=== PATIENT | female | born 1940 | race Caucasian/White ===

== ENCOUNTER 2018-05-29 21:20 | Inpatient (IN) | payer MEDICARE, OTHER ==
[2018-05-29] MEDS ORDERED: MORPHINE 10 MG/ML VIAL IVP STA ×2 (22:13→23:35)
[2018-05-29 22:34] LABS: BASOPHILS # (AUTO) 0.1 10^3/uL (0.0-0.1); BASOPHILS % (AUTO) 0.5 %; EOSINOPHILS # (AUTO) 0.1 10^3/uL (0.0-0.7); EOSINOPHILS % (AUTO) 0.5 %; HGB - HEMOGLOBIN 13.3 g/dL (12.0-16.0); LYMPHOCYTES % (AUTO) 7.4 %; MEAN CORPUSCULAR HEMOGLOBIN 35.8 pg (27.0-31.0); MEAN CORPUSCULAR HGB CONC 34.1 g/dL (32.0-36.0); MEAN CORPUSCULAR VOLUME 104.9 fL (81.0-99.0); MEAN PLATELET VOLUME 7.5 fL (7.9-10.8); MONOCYTES # (AUTO) 1.1 10^3/uL (0.0-1.0); MONOCYTES % (AUTO) 8.2 %; NEUTROPHILS % (AUTO) 83.4 %; PLT - PLATELET COUNT 255 10^3/uL (130-450); RED BLOOD COUNT 3.72 10^6/uL (4.20-5.40); RED CELL DISTRIBUTION WIDTH 14.1 % (12.0-15.0); WHITE BLOOD COUNT 13.2 x10^3/uL (4.8-10.8)
[2018-05-29 22:46] LABS: ALBUMIN 3.7 g/dL (3.2-5.5); ALBUMIN/GLOBULIN RATIO 1.1 (1.0-2.2); BILIRUBIN,TOTAL 0.9 mg/dL (0.2-1.0); CALCIUM 8.7 mg/dL (8.5-10.3); CREATININE 0.8 mg/dL (0.4-1.0)
[2018-05-29] MEDS: SODIUM CHLORIDE 0.9% 1,000 ML IV ONE (22:48)
[2018-05-29] MEDS ORDERED: IOPAMIDOL-300 100 ML VIAL ONE (23:15)
[2018-05-29] MEDS ORDERED: IOPAMIDOL-300 100 ML VIAL IVP ONE (23:34)
[2018-05-29] MEDS ORDERED: SODIUM CHLORIDE 0.9% 1,000 ML IV ONE (23:35)
[2018-05-29] MEDS ORDERED: MORPHINE 2 MG/ML SYRINGE IVP STA (23:40)
--- NOTE | 2018-05-30 00:16 | ED Physician Documentation ---
PD HPI ABD PAIN - Stated complaint Stated Complaint: ABD PX - Chief complaint Chief Complaint: General - History obtained from History obtained from: Patient, Family - History of Present Illness Timing - onset: Today Timing - details: Gradual onset, Still present Quality: Cramping, Aching Location: All over / everywhere Worsened by: Moving, Palpation Associated symptoms: No: Fever, Nausea, Vomiting, Constipation Similar symptoms before: Has not had sx before Recently seen: Not recently seen - Additional information Additional information: Patient is a 77 year old female who is presenting to the emergency department for abdominal pain. patient states that yesterday she was pulling a lot of weeds out yesterday and today she has diffuse abdominal pain. Patient states that she hasn't felt like eating much but denies nausea, vomiting or diarrhea. Review of Systems Constitutional: denies: Fever, Chills Eyes: reports: Reviewed and negative Ears: reports: Reviewed and negative Cardiac: denies: Chest pain / pressure Respiratory: denies: Dyspnea, Cough GI: reports: Abdominal Pain. denies: Abdominal Swelling, Nausea, Vomiting, Constipation, Diarrhea : denies: Dysuria, Frequency, Hesitancy, Unable to Void Skin: denies: Rash Neurologic: denies: Generalized weakness, Focal weakness PD PAST MEDICAL HISTORY - Past Medical History Past Medical History: No - Past Surgical History /UPPER CASER: section, Hysterectomy - Allergies Allergies/Adverse Reactions: Allergies Allergy/AdvReac Type Severity Reaction Status Date / Time No Known Drug Allergies Allergy Verified 05/29/18 21:27 - Social History Does the pt smoke?: No Smoking Status: Never smoker Does the pt drink ETOH?: No Does the pt have substance abuse?: No - Immunizations Immunizations are current?: Yes PD ED PE NORMAL - Vitals Vital signs reviewed: Yes - HEENT HEENT: Atraumatic - Cardiac Cardiac: RRR - Respiratory Respiratory: No respiratory distress - Derm Derm: Normal color, Warm and dry - Extremities Extremities: No deformity - Neuro Neuro: Alert and oriented X 3 - Psych Psych: Normal mood PD ED PE EXPANDED - General General: In Pain - HEENT HEENT: Dry mucous membranes - Abdomen Abdomen: Tender to palpation, RLQ, LLQ, Generalized/diffuse. No: Rebound, Guarding Results - Vitals Vitals: Vital Signs - 24 hr 05/29/18 21:26 Temperature 36.5 C Heart Rate 76 Respiratory 16 Rate Blood Pressure 112/64 O2 Saturation 95 Oxygen O2 Source Room air - Labs Labs: Laboratory Tests 05/29/18 05/29/18 05/30/18 22:27 22:27 00:10 WBC 13.2 H RBC 3.72 L Hgb 13.3 Hct 39.0 MCV 104.9 H MCH 35.8 H MCHC 34.1 RDW 14.1 Plt Count 255 MPV 7.5 L Neut # (Auto) 11.0 H Lymph # (Auto) 1.0 L [place] # (Auto) 1.1 H Eos # (Auto) 0.1 Baso # (Auto) 0.1 Absolute Nucleated RBC 0.01 Nucleated RBC % 0.0 Sodium 133 L Potassium 3.7 Chloride 101 Carbon Dioxide 25 Anion Gap 7.0 BUN 14 Creatinine 0.8 Estimated GFR (MDRD) 69 L Glucose 140 H Calcium 8.7 Total Bilirubin 0.9 AST 21 ALT 16 Alkaline Phosphatase 87 Total Protein 7.0 Albumin 3.7 Globulin 3.3 Albumin/Globulin Ratio 1.1 Lipase 25 Urine Color YELLOW Urine Clarity CLEAR Urine pH 5.5 Ur Specific [place] 1.010 Urine Protein NEGATIVE Urine Glucose (UA) NEGATIVE Urine Ketones 40 H Urine Occult Blood NEGATIVE Urine Nitrite NEGATIVE Urine Bilirubin NEGATIVE Urine Urobilinogen 0.2 (NORMAL) Ur Leukocyte Esterase NEGATIVE Ur Microscopic Review NOT INDICATED Urine Culture Comments NOT INDICATED - Rads (name of study) ct abd pelvis Radiology: Final report received, Discussed with rads, See rad report (enlarged gallbladder likely secondary to torsion, diverticultis) PD MEDICAL DECISION MAKING - ED course Complexity details: reviewed old records, reviewed results, re-evaluated patient , considered differential, d/w patient, d/w family ED course: Patient was seen and examined at bedside. IV access was gained and labs were drawn. patient was treated with fluid bolus and morphine for pain. Imaging was ordered. When patient returned from imaging the results were reviewed. Case was discussed with radiologist who stated that it was likely a torsion of the gallbladder. Case was discussed with the information services manager surgeon, Dr. Skinner who stated that he would see the patient in the morning and to admit to the hospitalist. Hospitalist was contacted and the case was discussed with him. Patient was admitted under his care. he was going to start antibiotics. - Sepsis Event Vital Signs: Vital Signs - 24 hr 06/28/18 21:26 Temperature 36.5 C Heart Rate 76 Respiratory 16 Rate Blood Pressure 112/64 O2 Saturation 95 Oxygen O2 Source Room air Departure - Departure Disposition: 66 [facility] DC/Xfer Clinical Impression: Enlarged gallbladder, Cholecystitis Condition: Stable
[2018-05-30 00:20] LABS: BILIRUBIN,URINE NEGATIVE (NEGATIVE); GLUCOSE, URINE (UA) NEGATIVE (NEGATIVE); KETONES,URINE (UA) 40 mg/dL (NEGATIVE); LEUKOCYTE ESTERASE, URINE NEGATIVE (NEGATIVE); NITRITE,URINE NEGATIVE (NEGATIVE); OCCULT BLOOD,URINE NEGATIVE (NEGATIVE); PH,URINE 5.5 PH (5.0-7.5); PROTEIN,URINE NEGATIVE (NEGATIVE); UROBILINOGEN,URINE 0.2 (NORMAL) E.U./dL (NORMAL)
--- NOTE | 2018-05-30 00:25 | CT Report ---
Procedure Date: 05/29/2018 Accession Number: [id number] / [id number] Procedure: CT - Abdomen/Pelvis W/ CPT Code: FULL RESULT: EXAM: CT ABDOMEN AND PELVIS EXAM DATE: 05/29/2018 11:35 PM. CLINICAL HISTORY: Lower abdominal pain. COMPARISONS: None. TECHNIQUE: Routine helical CT imaging was performed through the abdomen and pelvis. IV contrast: ISOVUE 300 100mL. Enteric contrast: No. Reconstructions: Coronal and sagittal. In accordance with CT protocol optimization, one or more of the following dose reduction techniques were utilized for this exam: automated exposure control, adjustment of mA and/or KV based on patient size, or use of iterative reconstructive technique. FINDINGS: Lung Bases: Bilateral lower lobe volume loss and bronchiectasis. Incidental coronary disease is present in the left anterior descending coronary artery. Small to moderate paraesophageal hernia. Small left pleural effusion. Liver: No mass. Mild intrahepatic bile duct dilation is noted. Portal vein is patent. Gallbladder/Bile Ducts: Marked distention of the gallbladder with associated wall thickening and mild adjacent stranding. The gallbladder wall enhances poorly. Common bile duct is prominent measuring 0.7 cm. No common bile duct stone or gallstone is noted. Spleen: Normal. Pancreas: Normal. Adrenal Glands: Normal. Kidneys: Normal. No masses or hydronephrosis. Peritoneal Cavity/Bowel: No pneumoperitoneum. Small amount of ascites is noted in the upper abdomen. Small to moderate amount of non-loculated fluid noted in the pelvis. Diffuse diverticulosis with mild to moderate distal left and proximal sigmoid wall thickening and mild adjacent stranding. No dilated bowel suggesting obstruction. Normal appendix. Small bowel and stomach are normal. No retroperitoneal, mesenteric or pelvic adenopathy. Pelvic Organs: Uterus is absent. Normal bladder. Pelvic ascites as described above. No collection, pelvic mass or adenopathy. Vasculature: Diffuse abdominal aortic atheromatous calcified plaques. No abdominal aortic aneurysm or dissection. Normal IVC. 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 Bones: No significant abnormality. Other: None. IMPRESSION: 1. Distended abnormal cystic structure in the right upper quadrant presumed to be the gallbladder. There is wall thickening and adjacent fluid. Reyes are poorly enhancing. Differential includes acute cholecystitis or gallbladder torsion. Favor gallbladder torsion given the appearance. Recommend surgical consultation. Ultrasound will NOT add useful information. 2. Long segment left colon and sigmoid colon wall thickening and mild adjacent stranding. Imaging findings may represent acute diverticulitis. No complication such as perforation or obstruction. Normal appendix. 3. Abdominal and pelvic ascites. No pneumoperitoneum or abscess. 4. 1.5 cm splenic artery calcification. 5. Moderate paraesophageal hernia. RADIA
[2018-05-30 00:27] LABS: CLARITY,URINE CLEAR (CLEAR)
[2018-05-30] MEDS ORDERED: ONDANSETRON 4 MG/2 ML VIAL IVP PRN (00:35)
[2018-05-30] MEDS ORDERED: ACETAMINOPHEN 325 MG TABLET PO PRN (00:35)
[2018-05-30] MEDS ORDERED: oxyCODONE 5 MG TABLET PO PRN ×3 (00:35→15:06)
[2018-05-30] MEDS ORDERED: MORPHINE 2 MG/ML SYRINGE IVP PRN (00:35)
[2018-05-30] MEDS ORDERED: PROMETHAZINE 25 MG/1 ML VIAL IM PRN (00:35)
[2018-05-30] MEDS ORDERED: SODIUM CHLORIDE FLUSH 0.9% 10 ML SYRINGE IVP PRN (00:35)
[2018-05-30] MEDS ORDERED: PROCHLORPERAZINE 10 MG/2 ML VIAL IVP PRN (00:35)
[2018-05-30] MEDS: SODIUM CHLORIDE 0.9% 1,000 ML IV ONE (00:51)
--- NOTE | 2018-05-30 00:59 | HISTORY & PHYSICAL EXAMINATION ---
Chief Complaint - Chief Complaint Chief Complaint: Abdominal Pain History of Present Illness - Admitted From Admitted From:: Emergency department - History Obtained From Records Reviewed: Yes History obtained from: Patient Exam Limitations: None - History of Present Illness HPI Comment/Other: Patient is a 77-year-old female with a past medical history significant for breast cancer status post lumpectomy and radiation, hyperlipidemia, essential tremor, cataracts and osteoarthritis status post bilateral knee replacements who presents to the emergency department with a chief complaint of abdominal pain. She states the abdominal pain first started yesterday evening at 8 PM. She states that throughout the day she was in the yard doing yard work. She states that when the pain started she thought that it was a muscle strain. She states that the pain became very severe and at its worse was a 10 out of 10. She states that the pain continued throughout the night and would come in waves. She states that times the pain was sharp and other times it was dull. She states the pain was initially located in the upper abdomen just under the rib cage but then became very diffuse. She denies any nausea and vomiting associated with the pain. She states that she woke up this morning and continues to have the pain. She took a Tylenol with some relief to the pain for about 4 hours but then the pain returned and was as severe as ever. She states that she tried to take another Tylenol but it gave her no relief. She states that she had decreased appetite throughout the day and could only bear to eat a little bit of yogurt and drink a little bit of water. She states that the pain continued and was very persistent and severe so she finally decided to come to the emergency department. The patient denies ever having any pain like this before. The patient denies any diarrhea or constipation. The patient denies any fevers or chills. The patient denies any chest pain, shortness of breath or palpitations. Patient denies any headaches, blurred vision, runny nose, sore throat, nasal congestion, difficulty swallowing, orthopnea, PND, increased lower extremity swelling, urinary urgency, urinary frequency, dysuria, joint pain, muscle aches , joint swelling, back pain, neck stiffness, skin changes, rash, hair loss, recent unintentional weight loss or any focal neurologic deficits. On presentation to the emergency department the patient was in a significant amount of pain. She however had stable vital signs she was afebrile and normotensive. The patient was given fluids and several doses of IV morphine with little relief of her abdominal pain. The patient's lab work revealed that she had a leukocytosis of 13.2 and was slightly hyponatremic. The patient also had some hyperglycemia with a glucose of 140 the remainder of her electrolytes were within normal limits. Patient's urine analysis was negative. The patient underwent a CT of her abdomen and pelvis which revealed a distended abnormal cystic structure in the right upper quadrant presumed to be her gallbladder. There was wall thickening and adjacent fluid. The francisco were poorly enhancing. The differential included acute cholecystitis or gallbladder torsion. The patient also had long segment left colon and sigmoid colon wall thickening and mild adjacent stranding which could represent acute diverticulitis. The patient was also found to have pelvic ascites. As well as a moderate paraesophageal hernia. Given the patient's possible cholecystitis and diverticulitis the patient was admitted to the [facility] by the hospitalist team and surgery will be consulted. 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 She is to a orthopedic surgeon. She has 4 children her youngest son is a pharmacist at [employer]. She lives with her in [place] near the [facility]. They are planning to move to [facility] and already have a [place] Her just recently retired and they would like to spend a halfway on [facility]. The patient has never been a smoker. She does drink a glass of wine on occasion. She denies any illicit drug use. - POLST Patient has POLST: Yes POLST Status: DNR Meds/Allgy - Home Medications Home Medications: Ambulatory Orders Medication Instructions Recorded Confirmed Atorvastatin [Lipitor] 20 mg 05/30/18 Cholecalciferol (Vitamin D3) 1,000 unit PO 05/30/18 [Vitamin D3] Lutein 6 mg PO 05/30/18 Multivitamin [Multiple Vitamins] 1 each PO 05/30/18 Primidone 250 mg PO 05/30/18 Propranolol [Inderal] 10 mg PO BID 05/30/18 05/30/18 Topiramate 50 mg PO 05/30/18 Valacyclovir HCl [Valtrex] 500 mg PO 05/30/18 - Allergies Allergies/Adverse Reactions: Allergies Allergy/AdvReac Type Severity Reaction Status Date / Time No Known Drug Allergies Allergy Verified 05/29/18 21:27 Review of Systems - Other Findings Other Findings: A comprehensive review of systems was performed the pertinent positives and negatives are stated above in the HPI and the remainder of the review of systems is negative. Exam - Vital Signs Reviewed Vital Signs: Yes - Physical Exam General Appearance: positive: Alert, Moderate distress (abdominal pain, patient unable to get comfortable) Eyes Bilateral: positive: Normal inspection, PERRL, EOMI, No lid inflammation, Conjunctivae nml, No scleral icterus ENT: positive: ENT inspection nml, Pharynx nml, Dry mucous membranes. negative : Purulent nasal drainage, Pharyngeal erythema, Oral lesions Neck: positive: Nml inspection, Thyroid nml, No JVD, Trachea midline. negative : Thyromegaly, Lymphadenopathy (R), Lymphadenopathy (L), Stiff neck, Carotid bruit, Swelling/bruising, Tracheal deviation Respiratory: positive: Chest non-tender, No respiratory distress, Breath sounds nml. negative: Wheezes, Rales, Rhonchi Cardiovascular: positive: Regular rate & rhythm, No murmur, No gallop Peripheral Pulses: positive: 2+ Abdomen: positive: Nml bowel sounds, Tenderness (Mostly on the right side of the abdomen and worst in the RUQ but patient is diffusely tender.), Guarding. negative: Rebound, Hepatomegaly, Splenomegaly Back: positive: Nml inspection. negative: CVA tenderness (R), CVA tenderness (L ) Skin: positive: Color nml, No rash, Warm. negative: Cyanosis, Diaphoresis, Pallor, Skin rash Extremities: positive: Non-tender, Full ROM, Nml appearance, Pedal edema (Mild bilateral) Neurologic/Psychiatric: positive: Oriented x3, CN's nml (2-12), Motor nml, Sensation nml, Mood/affect nml Conclusion/Plan - Problem List (1) Cholecystitis Conclusion/Plan: Patient presented with abdominal pain and had abdominal tenderness on examination. Pain was diffuse and started acutely yesterday. Patient's CT abdomen shows what appears to be an enlarged gallbladder concerning for cholecystitis versus gallbladder torsion. Given that the patient does have a leukocytosis and right upper quadrant tenderness we will treat the patient for cholecystitis with IV antibiotics. Plan: IV ciprofloxacin and Flagyl N.p.o. IV fluids Surgical consult for cholecystectomy Pain control with IV Dilaudid IV antiemetics (2) Diverticulitis Conclusion/Plan: Patient presents to the emergency department with diffuse abdominal pain and was tender diffusely on examination. The patient had a leukocytosis on presentation. The patient was found on CT of the abdomen and pelvis to have likely cholecystitis versus gallbladder torsion and in addition the patient had finding of left colon and sigmoid colon wall thickening and mild adjacent stranding concerning for acute diverticulitis. Plan: IV antibiotics with ciprofloxacin and Flagyl IV fluids N.p.o. IV antiemetics and IV pain medication Monitor closely (3) Abdominal pain Conclusion/Plan: Patient presented with abdominal pain which was diffuse and was tender on examination. Patient did have leukocytosis and appeared to be dry on examination. Patient had decreased appetite. Patient is found to have an enlarged gallbladder with possible cholecystitis versus gallbladder torsion. The patient also was found to have left colon and sigmoid colon wall thickening and adjacent stranding representing acute diverticulitis. Plan: IV antibiotics IV pain medication for control of abdominal pain IV antiemetics for control of nausea Surgical consult for likely cholecystectomy IV fluids Qualifiers: Abdominal location: generalized Qualified Code(s): R10.84 - Generalized abdominal pain (4) Hyponatremia Conclusion/Plan: Patient was hyponatremic on presentation with a sodium of 133. Patient appears to have hypovolemic hyponatremia likely secondary to ongoing infection and poor oral intake. Plan: IV fluids Monitor sodium (5) Hyperglycemia Conclusion/Plan: The patient does not have any history of diabetes but does have hyperglycemia on presentation with a glucose of 140. This could be a stress response secondary to her ongoing infection. However given her family history of diabetes we will get a hemoglobin A1c and continue to monitor her blood glucose. (6) Hyperlipidemia Conclusion/Plan: Patient has history of hyperlipidemia and is on Lipitor at home. Once we are able to confirm the patient's dose of Lipitor we will restarted while she is hospitalized Qualifiers: Hyperlipidemia type: unspecified Qualified Code(s): E78.5 - Hyperlipidemia , unspecified (7) Essential tremor Conclusion/Plan: Patient has a history of essential tremor and is on propranolol at home for treatment of her essential tremor. We will continue her on her home dose of propranolol once we confirm the dose. - Lab Results Lab results reviewed: Yes Fish Bones: 05/30/18 01:10 05/30/18 01:10 Other Lab Results: Laboratory Results WBC 15.7 x10^3/uL (4.8-10.8) H 05/30/18 01:10 RBC 3.58 10^6/uL (4.20-5.40) L 05/30/18 01:10 Hgb 12.7 g/dL (12.0-16.0) 05/30/18 01:10 Hct 38.7 % (37.0-47.0) 05/30/18 01:10 MCV 108.0 fL (81.0-99.0) H 05/30/18 01:10 MCH 35.5 pg (27.0-31.0) H 05/30/18 01:10 MCHC 32.9 g/dL (32.0-36.0) 05/30/18 01:10 RDW 14.5 % (12.0-15.0) 05/30/18 01:10 Plt Count 213 10^3/uL (130-450) 05/30/18 01:10 MPV 7.7 fL (7.9-10.8) L 05/30/18 01:10 Neut # (Auto) 13.7 10^3/uL (1.5-6.6) H 05/30/18 01:10 Lymph # (Auto) 0.7 10^3/uL (1.5-3.5) L 05/30/18 01:10 [place] # (Auto) 1.2 10^3/uL (0.0-1.0) H 05/30/18 01:10 Eos # (Auto) 0.0 10^3/uL (0.0-0.7) 05/30/18 01:10 Baso # (Auto) 0.0 10^3/uL (0.0-0.1) 05/30/18 01:10 Absolute Nucleated RBC 0.01 x10^3/uL 05/30/18 01:10 Nucleated RBC % 0.1 /100WBC 05/30/18 01:10 Sodium 134 mmol/L (135-145) L 05/30/18 01:10 Potassium 4.1 mmol/L (3.5-5.0) 05/30/18 01:10 Chloride 105 mmol/L (101-111) 05/30/18 01:10 Carbon Dioxide 22 mmol/L (21-32) 05/30/18 01:10 Anion Gap 7.0 (6-13) 05/30/18 01:10 BUN 12 mg/dL (6-20) 05/30/18 01:10 Creatinine 0.6 mg/dL (0.4-1.0) 05/30/18 01:10 Estimated GFR (MDRD) 97 (>89) 05/30/18 01:10 Glucose 143 mg/dL (70-100) H 05/30/18 01:10 Lactic Acid 0.9 mmol/L (0.5-2.2) 05/30/18 01:10 Calcium 8.1 mg/dL (8.5-10.3) L 05/30/18 01:10 Phosphorus 3.1 mg/dL (2.5-4.6) 05/30/18 01:10 Magnesium 1.9 mg/dL (1.7-2.8) 05/30/18 01:10 Total Bilirubin 0.8 mg/dL (0.2-1.0) 05/30/18 01:10 AST 22 IU/L (10-42) 05/30/18 01:10 ALT 15 IU/L (10-60) 05/30/18 01:10 Alkaline Phosphatase 78 IU/L (42-121) 05/30/18 01:10 Total Protein 6.5 g/dL (6.7-8.2) L 05/30/18 01:10 Albumin 3.4 g/dL (3.2-5.5) 05/30/18 01:10 Globulin 3.1 g/dL (2.1-4.2) 05/30/18 01:10 Albumin/Globulin Ratio 1.1 (1.0-2.2) 05/30/18 01:10 Lipase 25 U/L (22-51) 05/29/18 22:27 Urine Color YELLOW 05/30/18 00:10 Urine Clarity CLEAR (CLEAR) 05/30/18 00:10 Urine pH 5.5 PH (5.0-7.5) 05/30/18 00:10 Ur Specific [place] 1.010 (1.002-1.030) 05/30/18 00:10 Urine Protein NEGATIVE mg/dL (NEGATIVE) 05/30/18 00:10 Urine Glucose (UA) NEGATIVE mg/dL (NEGATIVE) 05/30/18 00:10 Urine Ketones 40 mg/dL (NEGATIVE) H 05/30/18 00:10 Urine Occult Blood NEGATIVE (NEGATIVE) 05/30/18 00:10 Urine Nitrite NEGATIVE (NEGATIVE) 05/30/18 00:10 Urine Bilirubin NEGATIVE (NEGATIVE) 05/30/18 00:10 Urine Urobilinogen 0.2 (NORMAL) E.U./dL (NORMAL) 05/30/18 00:10 Ur Leukocyte Esterase NEGATIVE (NEGATIVE) 05/30/18 00:10 Ur Microscopic Review NOT INDICATED 05/30/18 00:10 Urine Culture Comments NOT INDICATED 05/30/18 00:10 - Diagnostic Imaging Results Diagnostic Imaging Results: positive: Final report reviewed Diagnostic Imaging Results Comments: EXAM: [id number] CT/ABPEW ([id number]) Procedure Date: 05/29/2018 Accession Number: [id number] / [id number] Procedure: CT - Abdomen/Pelvis W/ CPT Code: FULL RESULT: EXAM: CT ABDOMEN AND PELVIS EXAM DATE: 05/29/2018 11:35 PM. CLINICAL HISTORY: Lower abdominal pain. COMPARISONS: None. TECHNIQUE: Routine helical CT imaging was performed through the abdomen and pelvis. IV contrast: ISOVUE 300 100mL. Enteric contrast: No. Reconstructions: Coronal and sagittal. In accordance with CT protocol optimization, one or more of the following dose reduction techniques were utilized for this exam: automated exposure control, adjustment of mA and/or KV based on patient size, or use of iterative reconstructive technique. FINDINGS: Lung Bases: Bilateral lower lobe volume loss and bronchiectasis. Incidental coronary disease is present in the left anterior descending coronary artery. Small to moderate paraesophageal hernia. Small left pleural effusion. Liver: No mass. Mild intrahepatic bile duct dilation is noted. Portal vein is patent. Gallbladder/Bile Ducts: Marked distention of the gallbladder with associated wall thickening and mild adjacent stranding. The gallbladder wall enhances poorly. Common bile duct is prominent measuring 0.7 cm. No common bile duct stone or gallstone is noted. Spleen: Normal. Pancreas: Normal. Adrenal Glands: Normal. Kidneys: Normal. No masses or hydronephrosis. Peritoneal Cavity/Bowel: No pneumoperitoneum. Small amount of ascites is noted in the upper abdomen. Small to moderate amount of non-loculated fluid noted in the pelvis. Diffuse diverticulosis with mild to moderate distal left and proximal sigmoid wall thickening and mild adjacent stranding. No dilated bowel suggesting obstruction. Normal appendix. Small bowel and stomach are normal. No retroperitoneal, mesenteric or pelvic adenopathy. Pelvic Organs: Uterus is absent. Normal bladder. Pelvic ascites as described above. No collection, pelvic mass or adenopathy. Vasculature: Diffuse abdominal aortic atheromatous calcified plaques. No abdominal aortic aneurysm or dissection. Normal IVC. 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 Bones: No significant abnormality. Other: None. IMPRESSION: 1. Distended abnormal cystic structure in the right upper quadrant presumed to be the gallbladder. There is wall thickening and adjacent fluid. [place] are poorly enhancing. Differential includes acute cholecystitis or gallbladder torsion. Favor gallbladder torsion given the appearance. Recommend surgical consultation. Ultrasound will NOT add useful information. 2. Long segment left colon and sigmoid colon wall thickening and mild adjacent stranding. Imaging findings may represent acute diverticulitis. No complication such as perforation or obstruction. Normal appendix. 3. Abdominal and pelvic ascites. No pneumoperitoneum or abscess. 4. 1.5 cm splenic artery calcification. 5. Moderate paraesophageal hernia. Core Measures - Anticipated LOS I expect patient to be DC'd or transferred within 96 hours.: Yes - DVT/VTE - Prophylaxis VTE/DVT Prophylaxis med ordered at admit?: Yes
[2018-05-30 01:17] LABS: BASOPHILS % (AUTO) 0.2 %; EOSINOPHILS % (AUTO) 0.1 %; HGB - HEMOGLOBIN 12.7 g/dL (12.0-16.0); LYMPHOCYTES # (AUTO) 0.7 10^3/uL (1.5-3.5); LYMPHOCYTES % (AUTO) 4.7 %; MEAN CORPUSCULAR HEMOGLOBIN 35.5 pg (27.0-31.0); MEAN CORPUSCULAR HGB CONC 32.9 g/dL (32.0-36.0); MEAN PLATELET VOLUME 7.7 fL (7.9-10.8); MONOCYTES # (AUTO) 1.2 10^3/uL (0.0-1.0); MONOCYTES % (AUTO) 7.4 %; NEUTROPHILS # (AUTO) 13.7 10^3/uL (1.5-6.6); NEUTROPHILS % (AUTO) 87.6 %; PLT - PLATELET COUNT 213 10^3/uL (130-450); RED BLOOD COUNT 3.58 10^6/uL (4.20-5.40); RED CELL DISTRIBUTION WIDTH 14.5 % (12.0-15.0); WHITE BLOOD COUNT 15.7 x10^3/uL (4.8-10.8)
[2018-05-30 01:35] LABS: ALBUMIN 3.4 g/dL (3.2-5.5); ALBUMIN/GLOBULIN RATIO 1.1 (1.0-2.2); BILIRUBIN,TOTAL 0.8 mg/dL (0.2-1.0); CALCIUM 8.1 mg/dL (8.5-10.3); CREATININE 0.6 mg/dL (0.4-1.0); MAGNESIUM 1.9 mg/dL (1.7-2.8); PHOSPHORUS 3.1 mg/dL (2.5-4.6); TOTAL PROTEIN 6.5 g/dL (6.7-8.2)
[2018-05-30] MEDS: CIPROFLOXACIN 400 MG/200 ML 200 ML IV SCH ×2 (02:04→12:15)
[2018-05-30] MEDS: HYDROmorphone 2 MG/ML VIAL IVP PRN ×3 (02:37→08:46)
[2018-05-30] MEDS: SODIUM CHLORIDE FLUSH 0.9% 10 ML SYRINGE IVP SCH ×3 (02:39→16:33)
[2018-05-30] MEDS: metroNIDAZOLE 500 MG/100 ML 500 MG/100 ML BAG IV SCH ×3 (03:28→17:00)
[2018-05-30 06:28] LABS: INR 1.1 (0.8-1.2); PT - PROTHROMBIN TIME 12.1 secs (9.9-12.6)
[2018-05-30 07:26] LABS: HB2 TOTAL 14.3 g/dL; HEMOGLOBIN A1C 0.49 g/dL; HEMOGLOBIN A1C % 5.3 % (4.6-6.2)
[2018-05-30] MEDS: FAMOTIDINE 20 MG TABLET PO SCH (08:27)
[2018-05-30] MEDS: POLYETHYLENE GLYCOL 3350 17 GM PACKET PO SCH (08:27)
--- NOTE | 2018-05-30 10:11 | CONSULTATION NOTE ---
Referring Provider Name of Referring Provider:: Dr. Lopez Consult Date: 05/30/18 Chief Complaint - Chief Complaint Chief Complaint: abdominal pain History of Present Illness - Admitted From Admitted From:: ER - History Obtained From Records Reviewed: yes History obtained from: pt Exam Limitations: none - History of Present Illness HPI Comment/Other: 77 yo female with sudden onset of severe constant steady right sided abdominal pain approximately 36 hours ago. This was not associated with fever,chills, N/V , change in bowel habits, melena, hematochezia. The pain waxed and waned in intensity but never completely resolved. She thought at first it was a muscle strain, but presented to the ER last night for evaluation when her daughter insisted upon it. No prior similar sx, no hx food intolerance, PUD, dysphagia, heartburn, indigestion, hepatitis/jaundice. Neg FH gallbladder disease or CRC, but + for duodenal carcinoma in her father and pancreatic ca in her mother. Her pain has persisted overnight but is well controlled with Dilaudid. No recent wt changes. A colonoscopy within the past 5 yrs was reportedly satisfactory. 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 She is to a orthopedic surgeon. She has 4 children her youngest son is a pharmacist at [employer]. She lives with her in [place] near the [facility]. They are planning to move to [facility] and already have a cabin on the [place]. Her just recently retired and they would like to spend a senior care on [facility]. The patient has never been a smoker. She does drink a glass of wine on occasion. She denies any illicit drug use. - Substance History Use: Uses substance without health or social issues: Alcohol Dependence: Experiences withdrawal or developed tolerances: NONE - POLST Patient has POLST: Yes POLST Status: DNR Meds/Allgy - Home Medications Home Medications: Ambulatory Orders Medication Instructions Recorded Confirmed Atorvastatin [Lipitor] 20 mg 05/30/18 Cholecalciferol (Vitamin D3) 1,000 unit PO 05/30/18 [Vitamin D3] Lutein 6 mg PO 05/30/18 Multivitamin [Multiple Vitamins] 1 each PO 05/30/18 Primidone 250 mg PO 05/30/18 Propranolol [Inderal] 10 mg PO BID 05/30/18 05/30/18 Topiramate 50 mg PO 05/30/18 Valacyclovir HCl [Valtrex] 500 mg PO 05/30/18 - Allergies Allergies/Adverse Reactions: Allergies Allergy/AdvReac Type Severity Reaction Status Date / Time No Known Drug Allergies Allergy Verified 05/29/18 21:27 Review of Systems - Constitutional Constitutional: reports: Poor appetite. denies: Fever, Chills, Weight gain, Weight loss - Cardiovascular Cariovascular: denies: Chest pain - Respiratory Respiratory: denies: Cough, Wheezing - Gastrointestinal Gastrointestinal: reports: Abdominal pain, Poor appetite. denies: Abdominal distention, Constipation, Diarrhea, Change in bowel habits, Rectal bleeding, Black stools, Bloody stools, Nausea, Vomiting, Coffee grounds emesis, Reflux/ heartburn, Bloating - Genitourinary Genitourinary: reports: Frequency. denies: Dysuria - Musculoskeletal Musculoskeletal: reports: Other (recent fall with contusion to right knee with effusion, and fx right ankle, treated without surgery) - Neurological Neurological: reports: Other (tremor, chronic) - Hematologic/Lymphatic Hematologic/Lymphatic: denies: Blood clots, Bleeding tendencies, Recurrent infections - All Other Systems All Other Systems: reports: Reviewed and negative Exam - Vital Signs Reviewed Vital Signs: Yes Vital Signs: Vital Signs x48h Temp Pulse Resp BP Pulse Ox 05/30/18 08:01 36.8 C 91 18 101/48 L 96 - Physical Exam General Appearance: positive: No acute distress, Alert Eyes Bilateral: positive: Normal inspection, Conjunctivae nml, No scleral icterus ENT: positive: ENT inspection nml, Dry mucous membranes Neck: positive: Nml inspection, No JVD. negative: Lymphadenopathy (R), Lymphadenopathy (L) Respiratory: positive: Chest non-tender, No respiratory distress, Breath sounds nml. negative: Wheezes, Rales, Rhonchi Cardiovascular: positive: Regular rate & rhythm, No murmur, No gallop Peripheral Pulses: positive: 2+ Abdomen: positive: Tenderness (diffuse right sided tenderness with guarding maximal in RUQ; no rebound tenderness or generalized peritoneal signs; neg Merlos's sign (pt recently received hydromorphone and currently reports no pain )), Guarding, Abnml bowel sounds (hypoactive). negative: Rebound, Hepatomegaly , Splenomegaly, Mass Back: positive: Nml inspection. negative: CVA tenderness (R), CVA tenderness (L ) Skin: positive: Color nml, No rash, Warm, Dry. negative: Cyanosis, Diaphoresis Extremities: positive: Non-tender, Nml appearance, No pedal edema. negative: Calf tenderness Neurologic/Psychiatric: positive: Oriented x3 Conclusion/Plan - Diagnosis Diagnosis: 1. Acute acalculous cholecystitis vs gallbladder torsion. 2. Abnormal CT of left colon, possibly due to coexisting diverticulitis; doubt neoplasm. 3. Mild volume depletion. 4. Paraesophageal hernia, asymptomatic at present. - Plan Plan: 1. To OR for lap vida, possible cholangiograms, possible open procedure; will inspect left colon at time of surgery. PAR conf with pt. 2. Further evaluation of colon and/or hiatal hernia at later date as needed. 3. Continue IVF and IV antibiotics as ordered. - Lab Results Lab results reviewed: Yes Fish Bones: 05/30/18 01:10 05/30/18 01:10 Other Lab Results: LFT's, lipase nl; UA neg; A1c nl - Diagnostic Imaging Results Diagnostic Imaging Results: positive: Final report reviewed, Read independently Diagnostic Imaging Results Comments: CT abd/pelvis: very large hydropic gallbladder with wall thickening and pericholecystic fluid, possible torsion, no stones, bile ducts at upper limits of nl (0.7 cm); abnormal thickening of descending and sigmoid colon c/w mild diverticulitis; small to moderate paraesophageal hiatal hernia; small amount of free fluid in pelvis. - EKG Results EKG Interpreted Independently: No EKG Findings: pending
[2018-05-30] MEDS: SODIUM CHLORIDE 0.9% 1,000 ML IV SCH ×3 (10:49→17:10)
[2018-05-30] MEDS ORDERED: BUPIVACAINE 0.5%-EPI 1:200000 PF 30 ML VIAL ONE (12:18)
[2018-05-30] MEDS ORDERED: BUPIVACAINE 0.5%-EPI 1:200000 PF 30 ML VIAL SUBQ ONE (13:04)
[2018-05-30] MEDS ORDERED: LACTATED RINGERS 1,000 ML IV ONE ×2 (13:05→14:00)
[2018-05-30] MEDS ORDERED: LIDOCAINE-MPF 2% 5 ML VIAL IM ONE (13:30)
[2018-05-30] MEDS ORDERED: NEOSTIGMINE 1 MG/1 ML 10 ML MDV IVP ONE (13:30)
[2018-05-30] MEDS ORDERED: fentaNYL 100 MCG/2 ML VIAL IVP ONE (13:30)
[2018-05-30] MEDS ORDERED: ROCURONIUM 50 MG/5 ML VIAL IVP ONE (13:30)
[2018-05-30] MEDS ORDERED: PROPOFOL 200 MG/20 ML VIAL IVP ONE (13:30)
[2018-05-30] MEDS ORDERED: ePHEDrine 50 MG/ML AMP IVP ONE (13:30)
[2018-05-30] MEDS ORDERED: ONDANSETRON 4 MG/2 ML VIAL IVP ONE (13:30)
[2018-05-30] MEDS ORDERED: GLYCOPYRROLATE 1 MG/5 ML VIAL IVP ONE (13:30)
[2018-05-30] MEDS ORDERED: ENOXAPARIN 40 MG/0.4 ML SYRINGE SUBQ SCH (14:00)
[2018-05-30] MEDS ORDERED: BUPIVACAINE 0.5%-EPI 1:200000 PF 10 ML VIAL ONE (14:27)
--- NOTE | 2018-05-30 14:58 | OPERATIVE REPORT ---
Operative Report - General Admit Date: 05/30/18 Procedure Date: 05/30/18 Planned Procedure: Lap vida Pre-Op Diagnosis: acute acalculous cholecystitis vs torsion of gallbladder Procedure Performed: Laparoscopic cholecystectomy Post Op Diagnosis: Torsion of gallbladder with infarction/gangrenous cholecystitis - Procedure Note Primary Surgeon: Bharath Skinner MD Anesthesia Provider: Que Elder CRNA Anesthesia Technique: General ET tube (gallbladder and contents) IV Fluids (mL): 1,300 Estimated Blood Loss (mL): 15 Urine Output (mL): 0 (no hernandes) Complications: none
[2018-05-30] MEDS ORDERED: HYDROmorphone 2 MG/ML VIAL IVP PRN (15:06)
[2018-05-30] MEDS ORDERED: CARBOXYMETHYLCELLULOSE OPHTH DROPS EACHEYE PRN (16:29)
[2018-05-30] MEDS: ACETAMINOPHEN 1,000 MG/100 ML 100 ML IV SCH ×2 (16:32→21:34)
[2018-05-30] MEDS: LACTATED RINGERS 1,000 ML IV SCH (16:32)
[2018-05-30] MEDS ORDERED: CHONDRO SU A PO SCH (21:00)
[2018-05-30] MEDS ORDERED: PRIMIDONE PO SCH (21:00)
[2018-05-30] MEDS ORDERED: GLUCOSAMINE PO SCH (21:00)
[2018-05-30] MEDS: valACYclovir 500 MG TABLET PO SCH (21:06)
[2018-05-30] MEDS: PRIMIDONE 250 MG PO SCH (21:06)
[2018-05-30] MEDS: PROPRANOLOL ER 80 MG CAPSULE PO SCH (21:06)
[2018-05-30] MEDS: ATORVASTATIN 10 MG TABLET PO SCH (21:06)
[2018-05-30] MEDS: TOPIRAMATE 100 MG TABLET PO SCH (21:06)
[2018-05-30] MEDS: NON FORMULARY MED (Cyclosporine [Restasis] 1 DROPS) EACHEYE SCH (21:07)
[2018-05-31] MEDS: CIPROFLOXACIN 400 MG/200 ML 200 ML IV SCH ×2 (00:38→12:17)
[2018-05-31] MEDS: metroNIDAZOLE 500 MG/100 ML 500 MG/100 ML BAG IV SCH ×3 (01:43→16:39)
[2018-05-31] MEDS: SODIUM CHLORIDE FLUSH 0.9% 10 ML SYRINGE IVP SCH ×3 (03:06→16:39)
[2018-05-31] MEDS: ACETAMINOPHEN 1,000 MG/100 ML 100 ML IV SCH ×4 (04:07→23:35)
[2018-05-31 05:44] LABS: BASOPHILS % (AUTO) 0.2 %; EOSINOPHILS # (AUTO) 0.1 10^3/uL (0.0-0.7); EOSINOPHILS % (AUTO) 0.4 %; HGB - HEMOGLOBIN 10.4 g/dL (12.0-16.0); LYMPHOCYTES # (AUTO) 0.7 10^3/uL (1.5-3.5); LYMPHOCYTES % (AUTO) 4.7 %; MEAN CORPUSCULAR HEMOGLOBIN 35.5 pg (27.0-31.0); MEAN CORPUSCULAR HGB CONC 33.4 g/dL (32.0-36.0); MEAN CORPUSCULAR VOLUME 106.4 fL (81.0-99.0); MONOCYTES % (AUTO) 6.9 %; NEUTROPHILS # (AUTO) 12.5 10^3/uL (1.5-6.6); NEUTROPHILS % (AUTO) 87.8 %; PLT - PLATELET COUNT 174 10^3/uL (130-450); RED BLOOD COUNT 2.93 10^6/uL (4.20-5.40); WHITE BLOOD COUNT 14.3 x10^3/uL (4.8-10.8)
[2018-05-31 05:59] LABS: ALBUMIN 2.4 g/dL (3.2-5.5); ALBUMIN/GLOBULIN RATIO 0.8 (1.0-2.2); BILIRUBIN,TOTAL 0.8 mg/dL (0.2-1.0); CALCIUM 7.8 mg/dL (8.5-10.3); CREATININE 0.8 mg/dL (0.4-1.0); MAGNESIUM 1.7 mg/dL (1.7-2.8); PHOSPHORUS 2.4 mg/dL (2.5-4.6); TOTAL PROTEIN 5.3 g/dL (6.7-8.2)
[2018-05-31] MEDS: POLYETHYLENE GLYCOL 3350 17 GM PACKET PO SCH (08:16)
[2018-05-31] MEDS: LACTATED RINGERS 1,000 ML IV SCH (08:18)
[2018-05-31] MEDS: KETOROLAC 15 MG/ML VIAL IVP PRN ×2 (08:22→16:38)
[2018-05-31] MEDS: valACYclovir 500 MG TABLET PO SCH ×2 (08:25→21:38)
[2018-05-31] MEDS: FAMOTIDINE 20 MG TABLET PO SCH (08:25)
[2018-05-31] MEDS: NON FORMULARY MED (Cyclosporine [Restasis] 1 DROPS) EACHEYE SCH ×2 (08:27→21:37)
[2018-05-31] MEDS: ENOXAPARIN 40 MG/0.4 ML SYRINGE SUBQ SCH (08:29)
[2018-05-31] MEDS ORDERED: LUTEIN 20 MG PO SCH (09:00)
[2018-05-31] MEDS ORDERED: CHOLECALCIFEROL 1,000 UNIT TABLET PO SCH (09:00)
[2018-05-31] MEDS ORDERED: FEXOFENADINE 60 MG TABLET PO SCH (09:00)
[2018-05-31] MEDS ORDERED: MULTIVITAMIN PO SCH (09:00)
--- NOTE | 2018-05-31 11:22 | PROVIDER PROGRESS NOTE ---
Subjective - General Admit Date: 05/30/18 Procedure Date: 05/30/18 Post Op Days: 1 Procedure Performed: lap vida - Review of Systems Wound/Incisions: positive: Healing well, No drainage General: positive: No symptoms Pulmonary: positive: No symptoms Cardiovascular: positive: No symptoms Gastrointestinal: positive: Abdominal pain (markedly improved compared to preop) . negative: Nausea, Vomiting, Difficulty swallowing, Flatus Genitourinary: positive: No symptoms Musculoskeletal: positive: No symptoms Skin: positive: No symptoms Psychiatric: positive: No symptoms - Other Other Information/Narrative: Feels much better, good pain control, no N/V, tolerating clear liquid diet well , voiding well. Objective - Patient Data Reviewed Vital Signs: Yes Vital Signs: Vital Signs x48h Temp Pulse Resp BP Pulse Ox 05/31/18 08:54 36.5 C 75 24 103/63 96 05/31/18 04:15 36.8 C 75 16 102/58 L 95 Weight: Weight 05/29/18 05/30/18 05/31/18 23:59 23:59 23:59 Weight (kg) 56.5 kg Intake & Output: Intake and Output Totals x24h 05/29/18 05/30/18 05/31/18 23:59 23:59 23:59 Intake Total 2437.5 2189.719 Output Total 500 450 Balance 1937.5 1739.719 - Lab Results Lab Results: 05/31/18 05:15 05/31/18 05:15 Other Lab Results: Lab Results x24hrs 05/31/18 05/31/18 Range/Units 05:15 05:15 WBC 14.3 H (4.8-10.8) x10^3/uL RBC 2.93 L (4.20-5.40) 10^6/uL Hgb 10.4 L (12.0-16.0) g/dL Hct 31.2 L (37.0-47.0) % MCV 106.4 H (81.0-99.0) fL MCH 35.5 H (27.0-31.0) pg MCHC 33.4 (32.0-36.0) g/dL RDW 14.0 (12.0-15.0) % Plt Count 174 (130-450) 10^3/uL MPV 8.0 (7.9-10.8) fL Neut # (Auto) 12.5 H (1.5-6.6) 10^3/uL Lymph # (Auto) 0.7 L (1.5-3.5) 10^3/uL [place] # (Auto) 1.0 (0.0-1.0) 10^3/uL Eos # (Auto) 0.1 (0.0-0.7) 10^3/uL Baso # (Auto) 0.0 (0.0-0.1) 10^3/uL Absolute Nucleated RBC 0.00 x10^3/uL Nucleated RBC % 0.0 /100WBC Sodium 132 L (135-145) mmol/L Potassium 3.5 (3.5-5.0) mmol/L Chloride 104 (101-111) mmol/L Carbon Dioxide 23 (21-32) mmol/L Anion Gap 5.0 L (6-13) BUN 11 (6-20) mg/dL Creatinine 0.8 (0.4-1.0) mg/dL Estimated GFR (MDRD) 69 L (>89) Glucose 113 H (70-100) mg/dL Calcium 7.8 L (8.5-10.3) mg/dL Phosphorus 2.4 L (2.5-4.6) mg/dL Magnesium 1.7 (1.7-2.8) mg/dL Total Bilirubin 0.8 (0.2-1.0) mg/dL AST 34 (10-42) IU/L ALT 30 (10-60) IU/L Alkaline Phosphatase 62 (42-121) IU/L Total Protein 5.3 L (6.7-8.2) g/dL Albumin 2.4 L (3.2-5.5) g/dL Globulin 2.9 (2.1-4.2) g/dL Albumin/Globulin Ratio 0.8 L (1.0-2.2) peritoneal fluid gm stain: no bacteria gallbladder contents gm stain: many GPC and GPR - Current Medications Current Medications: Current Medications Generic Name Dose Route Start Last Admin Trade Name Freq PRN Reason Stop Dose Admin Atorvastatin Calcium 20 mg 05/30/18 21:00 05/30/18 21:06 Lipitor PO 20 mg QPM DONNIE Administration Enoxaparin Sodium 40 mg 05/31/18 09:00 05/31/18 08:29 Lovenox SUBQ 40 mg DAILY DONNIE Administration Famotidine 20 mg 05/30/18 09:00 05/31/18 08:25 Pepcid PO 20 mg DAILY DONNIE Administration Ciprofloxacin 200 mls @ 200 mls/hr 05/30/18 01:00 05/31/18 01:43 Cipro 400 Mg/200 Ml IV Infused Q12H DONNIE Infusion Metronidazole 500 mg in 100 mls @ 100 mls/hr 05/30/18 01:00 05/31/18 09:38 Flagyl 500 Mg/100 Ml IV Infused Q8H DONNIE Infusion Acetaminophen 100 mls @ 400 mls/hr 05/30/18 16:00 05/31/18 11:16 Ofirmev IV Infused Q6H DONNIE Infusion Ketorolac Tromethamine 15 mg 05/30/18 15:05 05/31/18 08:22 Toradol Inj (15mg) IVP 06/04/18 15:04 15 mg Q6HR PRN Administration PAIN Non-Formulary Medication 1 drops 05/30/18 21:00 05/31/18 08:27 Cyclosporine [Restasis] EACHEYE 1 drops BID DONNIE Administration Oxycodone HCl 2.5 mg 05/30/18 15:06 05/31/18 03:59 Roxicodone PO 2.5 mg Q6H PRN Administration Pain 5 to 7 Primidone [Primidone 2 each 05/30/18 21:00 05/30/18 21:06 ] 250 Mg Tab PO 2 each QPM DONNIE Administration Polyethylene Glycol 17 gm 05/30/18 09:00 05/31/18 08:16 Miralax PO 17 gm DAILY DONNIE Administration Propranolol HCl 80 mg 05/30/18 21:00 05/30/18 21:06 Inderal La PO 80 mg QPM DONNIE Administration Sodium Chloride 10 ml 05/30/18 01:00 05/31/18 08:25 Normal Saline Flush 0.9% IVP 10 ml 0100,0900,1700 DONNIE Administration Topiramate 200 mg 05/30/18 21:00 05/30/18 21:06 Topamax PO 200 mg QPM DONNIE Administration Valacyclovir HCl 500 mg 05/30/18 21:00 05/31/18 08:25 Valtrex PO 500 mg BID DONNIE Administration - Physical Exam Wound/Incisions: positive: Healing well, No drainage General Appearance: positive: No acute distress, Alert Eyes Bilateral: positive: Conjunctivae nml, No scleral icterus ENT: positive: Pharynx nml, No signs of dehydration Neck: positive: Nml inspection. negative: No JVD (neck veins full) Respiratory: positive: Chest non-tender, Rales (faint bibasilar, which don't clear with cough) Cardiovascular: positive: Regular rate & rhythm, No murmur, No gallop Abdomen: positive: Nml bowel sounds, No distention, Tenderness (minimal, expected postop; incisions healing welll). negative: Guarding, Rebound Skin: positive: Color nml, Warm, Dry Extremities: positive: No pedal edema. negative: Calf tenderness Neurologic/Psychiatric: positive: Oriented x3 ABX Reporting Has patient been on IV antibiotics over the past 48 hours?: No Impression/Plan - Problem List Problem List: POD #1 s/p lap vida for torsion of gallbladder with infarction/gangrene. Doing well overall. Some evidence of mild fluid overload; GI tract function returning. Plan: d/c IVF, advance diet, continue IV antibiotics until peritoneal fluid cultures are back, OOB, pulmonary toilet.
--- NOTE | 2018-05-31 15:22 | PROVIDER PROGRESS NOTE ---
Subjective - Prog Note Date Prog Note Date: 05/31/18 Prog Note Time: 15:00 - Subjective Pt reports feeling: Improved Subjective: Today is postop day 1; the patient underwent successful laparoscopic cholecystectomy yesterday for a torsioned gangrenous gallbladder. She says she was a little more sore yesterday evening than she is today and she says her pain has been well managed thus far. She denies any fever or chills. Dr. Skinenr has started the patient on a clear liquid diet which she has tolerated fairly well. She denies any nausea or vomiting. Current Medications - Current Medications Current Medications: Active Medications Generic Name Dose Route Start Last Admin Trade Name Freq PRN Reason Stop Dose Admin Atorvastatin Calcium 20 mg 05/30/18 21:00 05/30/18 21:06 Lipitor PO 20 mg QPM DONNIE Administration Carboxymethylcellulose 1 drops 05/30/18 16:29 Refresh 1% Ophth Drops EACHEYE Q2H PRN Dry Eye Enoxaparin Sodium 40 mg 05/31/18 09:00 05/31/18 08:29 Lovenox SUBQ 40 mg DAILY DONNIE Administration Famotidine 20 mg 05/30/18 09:00 05/31/18 08:25 Pepcid PO 20 mg DAILY DONNIE Administration Ciprofloxacin 200 mls @ 200 mls/hr 05/30/18 01:00 05/31/18 13:37 Cipro 400 Mg/200 Ml IV Infused Q12H DONNIE Infusion Metronidazole 500 mg in 100 mls @ 100 mls/hr 05/30/18 01:00 05/31/18 09:38 Flagyl 500 Mg/100 Ml IV Infused Q8H DONNIE Infusion Acetaminophen 100 mls @ 400 mls/hr 05/30/18 16:00 05/31/18 11:16 Ofirmev IV Infused Q6H DONNIE Infusion Ketorolac Tromethamine 15 mg 05/30/18 15:05 05/31/18 08:22 Toradol Inj (15mg) IVP 06/04/18 15:04 15 mg Q6HR PRN Administration PAIN Non-Formulary Medication 1 drops 05/30/18 21:00 05/31/18 08:27 Cyclosporine [Restasis] EACHEYE 1 drops BID DONNIE Administration Ondansetron HCl 4 mg 05/30/18 00:35 Zofran Inj IVP Q6HR PRN Nausea / Vomiting Oxycodone HCl 2.5 mg 05/30/18 15:06 05/31/18 03:59 Roxicodone PO 2.5 mg Q6H PRN Administration Pain 5 to 7 Primidone [Primidone 2 each 05/30/18 21:00 05/30/18 21:06 ] 250 Mg Tab PO 2 each QPM DONNIE Administration Polyethylene Glycol 17 gm 05/30/18 09:00 05/31/18 08:16 Miralax PO 17 gm DAILY DONNIE Administration Prochlorperazine Edisylate 10 mg 05/30/18 00:35 Compazine Inj IVP Q6HR PRN Nausea / Vomiting Promethazine HCl 25 mg 05/30/18 00:35 Phenergan Inj IM Q6HR PRN Nausea / Vomiting Propranolol HCl 80 mg 05/30/18 21:00 05/30/18 21:06 Inderal La PO 80 mg QPM DONNIE Administration Sodium Chloride 10 ml 05/30/18 00:35 Normal Saline Flush 0.9% IVP PRN PRN NEEDED PER PROVIDER ORDERS Sodium Chloride 10 ml 05/30/18 01:00 05/31/18 08:25 Normal Saline Flush 0.9% IVP 10 ml 0100,0900,1700 DONNIE Administration Topiramate 200 mg 05/30/18 21:00 05/30/18 21:06 Topamax PO 200 mg QPM DONNIE Administration Valacyclovir HCl 500 mg 05/30/18 21:00 05/31/18 08:25 Valtrex PO 500 mg BID DONNIE Administration Aspirin [Hima] 325 mg PO DAILY 05/30/18 Atorvastatin [Lipitor] 20 mg PO QPM 05/30/18 Carboxymethylcellulose Sodium [Refresh Tears] 1 drops EACHEYE Q2H PRN 05/30/18 Cholecalciferol (Vitamin D3) [Vitamin D3] 2,000 unit PO DAILY 05/30/18 Cyclosporine [Restasis] 1 drops EACHEYE BID 05/30/18 Fexofenadine HCl [Shari Allergy] 180 mg PO DAILY 05/30/18 Glucosamine/Chondro Black A [Glucosamine-Chondroitin Tab] 1 each PO BID 05/30/18 Lutein 20 mg PO DAILY 05/30/18 Multivitamin [Multiple Vitamins] 1 each PO DAILY 05/30/18 Primidone 500 mg PO QPM 05/30/18 Propranolol ER [Inderal LA] 80 mg PO QPM 05/30/18 Topiramate 200 mg PO QPM 05/30/18 Valacyclovir HCl [Valtrex] 500 mg PO BID 05/30/18 Objective - Vital Signs/Intake & Output Reviewed Vital Signs: Yes Vital Signs: Vital Signs x48h Temp Pulse Resp BP Pulse Ox 05/31/18 12:57 36.5 C 71 22 104/57 L 96 05/31/18 12:23 95 05/31/18 08:54 36.5 C 75 24 103/63 96 Intake & Output: Intake & Output 05/28/18 05/29/18 05/30/18 05/31/18 23:59 23:59 23:59 23:59 Intake Total 2437.5 3359.719 Output Total 500 750 Balance 1937.5 2609.719 - Objective General Appearance: positive: No acute distress, Alert Eyes Bilateral: positive: Normal inspection, PERRL, EOMI, No lid inflammation, Conjunctivae nml, No scleral icterus ENT: positive: ENT inspection nml, Pharynx nml, No signs of dehydration Neck: positive: Nml inspection, Thyroid nml, No JVD, Trachea midline. negative : Thyromegaly Respiratory: positive: Chest non-tender, No respiratory distress, Breath sounds nml. negative: Wheezes, Rales, Rhonchi Cardiovascular: positive: Regular rate & rhythm, No murmur, No gallop Abdomen: positive: No organomegaly, No distention, Tenderness. negative: Hepatomegaly, Splenomegaly, Mass Back: positive: Nml inspection. negative: CVA tenderness (R), CVA tenderness (L ) Skin: positive: Color nml, No rash, Warm, Dry. negative: Cyanosis Extremities: positive: Non-tender, Full ROM, Nml appearance, No pedal edema Neurologic/Psychiatric: positive: Oriented x3, CN's nml (2-12), Motor nml, Sensation nml, Mood/affect nml - Lab Results Fish Bones: 05/31/18 05:15 05/31/18 05:15 Other Labs: Lab Results x24hrs 05/31/18 05/31/18 Range/Units 05:15 05:15 WBC 14.3 H (4.8-10.8) x10^3/uL RBC 2.93 L (4.20-5.40) 10^6/uL Hgb 10.4 L (12.0-16.0) g/dL Hct 31.2 L (37.0-47.0) % MCV 106.4 H (81.0-99.0) fL MCH 35.5 H (27.0-31.0) pg MCHC 33.4 (32.0-36.0) g/dL RDW 14.0 (12.0-15.0) % Plt Count 174 (130-450) 10^3/uL MPV 8.0 (7.9-10.8) fL Neut # (Auto) 12.5 H (1.5-6.6) 10^3/uL Lymph # (Auto) 0.7 L (1.5-3.5) 10^3/uL [place] # (Auto) 1.0 (0.0-1.0) 10^3/uL Eos # (Auto) 0.1 (0.0-0.7) 10^3/uL Baso # (Auto) 0.0 (0.0-0.1) 10^3/uL Absolute Nucleated RBC 0.00 x10^3/uL Nucleated RBC % 0.0 /100WBC Sodium 132 L (135-145) mmol/L Potassium 3.5 (3.5-5.0) mmol/L Chloride 104 (101-111) mmol/L Carbon Dioxide 23 (21-32) mmol/L Anion Gap 5.0 L (6-13) BUN 11 (6-20) mg/dL Creatinine 0.8 (0.4-1.0) mg/dL Estimated GFR (MDRD) 69 L (>89) Glucose 113 H (70-100) mg/dL Calcium 7.8 L (8.5-10.3) mg/dL Phosphorus 2.4 L (2.5-4.6) mg/dL Magnesium 1.7 (1.7-2.8) mg/dL Total Bilirubin 0.8 (0.2-1.0) mg/dL AST 34 (10-42) IU/L ALT 30 (10-60) IU/L Alkaline Phosphatase 62 (42-121) IU/L Total Protein 5.3 L (6.7-8.2) g/dL Albumin 2.4 L (3.2-5.5) g/dL Globulin 2.9 (2.1-4.2) g/dL Albumin/Globulin Ratio 0.8 L (1.0-2.2) - Diagnostic Imaging Diagnostic Imaging Results: positive: Final report reviewed Diagnostic Imaging Comments: EXAM: CT ABDOMEN AND PELVIS EXAM DATE: 05/29/2018 11:35 PM. CLINICAL HISTORY: Lower abdominal pain. COMPARISONS: None. TECHNIQUE: Routine helical CT imaging was performed through the abdomen and pelvis. IV contrast: ISOVUE 300 100mL. Enteric contrast: No. Reconstructions: Coronal and sagittal. In accordance with CT protocol optimization, one or more of the following dose reduction techniques were utilized for this exam: automated exposure control, adjustment of mA and/or KV based on patient size, or use of iterative reconstructive technique. FINDINGS: Lung Bases: Bilateral lower lobe volume loss and bronchiectasis. Incidental coronary disease is present in the left anterior descending coronary artery. Small to moderate paraesophageal hernia. Small left pleural effusion. Liver: No mass. Mild intrahepatic bile duct dilation is noted. Portal vein is patent. Gallbladder/Bile Ducts: Marked distention of the gallbladder with associated wall thickening and mild adjacent stranding. The gallbladder wall enhances poorly. Common bile duct is prominent measuring 0.7 cm. No common bile duct stone or gallstone is noted. Spleen: Normal. Pancreas: Normal. Adrenal Glands: Normal. Kidneys: Normal. No masses or hydronephrosis. Peritoneal Cavity/Bowel: No pneumoperitoneum. Small amount of ascites is noted in the upper abdomen. Small to moderate amount of non-loculated fluid noted in the pelvis. Diffuse diverticulosis with mild to moderate distal left and proximal sigmoid wall thickening and mild adjacent stranding. No dilated bowel suggesting obstruction. Normal appendix. Small bowel and stomach are normal. No retroperitoneal, mesenteric or pelvic adenopathy. Pelvic Organs: Uterus is absent. Normal bladder. Pelvic ascites as described above. No collection, pelvic mass or adenopathy. Vasculature: Diffuse abdominal aortic atheromatous calcified plaques. No abdominal aortic aneurysm or dissection. Normal IVC. 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 Bones: No significant abnormality. Other: None. IMPRESSION: 1. Distended abnormal cystic structure in the right upper quadrant presumed to be the gallbladder. There is wall thickening and adjacent fluid. Reyes are poorly enhancing. Differential includes acute cholecystitis or gallbladder torsion. Favor gallbladder torsion given the appearance. Recommend surgical consultation. Ultrasound will NOT add useful information. 2. Long segment left colon and sigmoid colon wall thickening and mild adjacent stranding. Imaging findings may represent acute diverticulitis. No complication such as perforation or obstruction. Normal appendix. 3. Abdominal and pelvic ascites. No pneumoperitoneum or abscess. 4. 1.5 cm splenic artery calcification. 5. Moderate paraesophageal hernia. ABX Reporting Has patient been on IV antibiotics over the past 48 hours?: Yes Assessment/Plan - Problem List (1) Hyperlipidemia Impression: Presumably well-managed, we will continue the patient on her Lipitor which she takes at home, 20 mg q PM. Qualifiers: Hyperlipidemia type: unspecified Qualified Code(s): E78.5 - Hyperlipidemia , unspecified (2) Hypertension Impression: The patient has been bordering on hypotension this hospitalization. We will continue the propanolol. (3) Allergic rhinitis Impression: Patient has a history of allergic rhinitis and takes Shari at home. We will continue this while she is in the hospital. (4) Cholecystitis Impression: The patient underwent surgical excision of her gallbladder which was gangrenous and torsioned. She is showing signs of clinical improvement. Continue present care. (5) Dry eye syndrome Impression: The patient takes Restasis at home for dry eye syndrome. We will continue this while she is inpatient.
[2018-05-31] MEDS: PRIMIDONE 250 MG PO SCH (21:37)
[2018-05-31] MEDS: TOPIRAMATE 100 MG TABLET PO SCH (21:37)
[2018-05-31] MEDS: ATORVASTATIN 10 MG TABLET PO SCH (21:37)
[2018-05-31] MEDS: PROPRANOLOL ER 80 MG CAPSULE PO SCH (21:38)
[2018-06-01] MEDS: CIPROFLOXACIN 400 MG/200 ML 200 ML IV SCH ×2 (00:36→12:28)
[2018-06-01] MEDS: metroNIDAZOLE 500 MG/100 ML 500 MG/100 ML BAG IV SCH ×3 (01:46→18:06)
[2018-06-01] MEDS: SODIUM CHLORIDE FLUSH 0.9% 10 ML SYRINGE IVP SCH ×3 (01:51→18:06)
[2018-06-01] MEDS: ACETAMINOPHEN 1,000 MG/100 ML 100 ML IV SCH ×3 (04:17→17:17)
[2018-06-01 06:36] LABS: BASOPHILS # (AUTO) 0.1 10^3/uL (0.0-0.1); BASOPHILS % (AUTO) 0.5 %; EOSINOPHILS # (AUTO) 0.1 10^3/uL (0.0-0.7); EOSINOPHILS % (AUTO) 1.2 %; HGB - HEMOGLOBIN 10.7 g/dL (12.0-16.0); LYMPHOCYTES # (AUTO) 0.9 10^3/uL (1.5-3.5); LYMPHOCYTES % (AUTO) 8.2 %; MEAN CORPUSCULAR HEMOGLOBIN 35.3 pg (27.0-31.0); MEAN CORPUSCULAR HGB CONC 33.3 g/dL (32.0-36.0); MEAN PLATELET VOLUME 7.8 fL (7.9-10.8); MONOCYTES # (AUTO) 0.9 10^3/uL (0.0-1.0); MONOCYTES % (AUTO) 8.1 %; NEUTROPHILS # (AUTO) 9.1 10^3/uL (1.5-6.6); PLT - PLATELET COUNT 194 10^3/uL (130-450); RED BLOOD COUNT 3.04 10^6/uL (4.20-5.40); RED CELL DISTRIBUTION WIDTH 14.2 % (12.0-15.0)
[2018-06-01 07:06] LABS: ALBUMIN 2.5 g/dL (3.2-5.5); ALBUMIN/GLOBULIN RATIO 0.8 (1.0-2.2); BILIRUBIN,TOTAL 0.7 mg/dL (0.2-1.0); CALCIUM 7.8 mg/dL (8.5-10.3); CREATININE 0.8 mg/dL (0.4-1.0); MAGNESIUM 1.8 mg/dL (1.7-2.8); PHOSPHORUS 2.1 mg/dL (2.5-4.6); TOTAL PROTEIN 5.7 g/dL (6.7-8.2)
[2018-06-01] MEDS: POLYETHYLENE GLYCOL 3350 17 GM PACKET PO SCH (07:50)
[2018-06-01] MEDS: FAMOTIDINE 20 MG TABLET PO SCH (07:51)
[2018-06-01] MEDS: valACYclovir 500 MG TABLET PO SCH ×2 (07:51→21:27)
[2018-06-01] MEDS: NON FORMULARY MED (Cyclosporine [Restasis] 1 DROPS) EACHEYE SCH ×2 (07:52→21:28)
--- NOTE | 2018-06-01 07:52 | OPERATIVE REPORT ---
DATE OF SERVICE: 05/30/2018 Physician: Bharath Skinner MD PREOPERATIVE DIAGNOSIS: Acute acalculous cholecystitis versus torsion of the gallbladder. POSTOPERATIVE DIAGNOSIS: Torsion of the gallbladder with infarction/gangrenous cholecystitis. PROCEDURE PERFORMED: Laparoscopic cholecystectomy. ANESTHESIA: General endotracheal by Que Elder CRNA. SURGEON: Bharath Skinner MD ESTIMATED BLOOD LOSS: 15 mL COMPLICATIONS: None. DRAINS: None. INTRAVENOUS FLUIDS: 1300 mL crystalloid solution. FINDINGS: An extremely large, hydropic, gangrenous-appearing gallbladder was present extending into the pelvis with an extremely narrow mesentery making the gallbladder almost entirely intraperitoneal and with evidence of torsion at the neck of the gallbladder and infarction of the entire gallbladder with gangrenous change and fibrinous exudate along with approximately 30-40 mL of serosanguineous peritoneal fluid. There was no evidence of gross perforation. The visualized portions of the liver, small and large intestine including the sigmoid colon and cecum were within normal limits. Cystic duct was of normal caliber. Common duct was not visualized. INDICATIONS FOR PROCEDURE: The patient is a 77-year-old woman with a 36-hour history of abrupt onset of severe upper abdominal pain, nausea and vomiting. Examination revealed tenderness and guarding in the upper abdomen and right lower quadrant. Evaluation with CT scan showed evidence of either acalculous cholecystitis or torsion of the gallbladder. Patient advised to undergo laparoscopic cholecystectomy for definitive surgical treatment. TECHNIQUE After informed consent, the patient was taken to the operating room where she was placed under general endotracheal anesthesia. Preoperative preparation including administration of sequential calf compression boots and previous therapeutic administration of Zosyn intravenously. Her abdomen was prepared with ChloraPrep solution and draped in the usual sterile fashion. A curvilinear transverse incision was made along the inferior edge of the umbilicus and carried down through the layers of the abdominal wall until the peritoneum was identified and entered sharply. A 10 mm Alexander cannula was inserted and pneumoperitoneum achieved with carbon dioxide. A 5-mm 30-degree Naomi telescope was inserted and laparoscopy carried out. Findings were as noted above. Three additional 5 mm ports were placed in the right upper quadrant. Peritoneal fluid was aspirated and sent for Gram stain and culture. The gallbladder was decompressed by aspirating over 150 mL of serosanguineous fluid, and a sample of this was also sent for Gram stain and culture. The gallbladder was unable to be grasped. It was de-torsed and then retracted in a lateral direction, exposing the very limited mesentery of the gallbladder to the liver and the cystic triangle. The gallbladder was taken down from above using electrocautery to divide the attachments to the liver, isolating the cystic duct and artery and the cystic triangle. The cystic artery and cystic duct were exposed adjacent to the gallbladder. The critical view of safety was obtained, and the cystic artery was divided between 2 sets of 10 mm clips adjacent to the gallbladder, and the cystic duct was triply clipped distally, doubly proximally adjacent to the gallbladder, and divided between. The gallbladder was then placed in an organ retrieval bag, extracted, and sent for pathologic evaluation. After hemostasis was assured, the right upper quadrant and abdominal cavity were copiously irrigated with saline solution, following which the instruments and cannulas removed under direct vision. Pneumoperitoneum was allowed to escape, and the incisions were closed in layers using continuous 0 Vicryl, reapproximating the midline fascia at the umbilicus, followed by 4-0 Monocryl subcuticular skin closure sutures at all the port sites. A total of 20 mL of 0.5% Marcaine with epinephrine was infiltrated into the incisions to assist in postoperative analgesia. Dermabond was applied to the incisions. Anesthesia was terminated and the patient transferred to the recovery room in satisfactory condition. Sponge and needle counts correct. No drains were used. TD: 05/31/2018 14:32 CLAU
[2018-06-01] MEDS: ENOXAPARIN 40 MG/0.4 ML SYRINGE SUBQ SCH (07:54)
--- NOTE | 2018-06-01 11:07 | PROVIDER PROGRESS NOTE ---
Subjective - General Admit Date: 05/30/18 Procedure Date: 05/30/18 Post Op Days: 2 Procedure Performed: lap vida - Review of Systems Wound/Incisions: positive: Healing well, No drainage General: positive: No symptoms Pulmonary: positive: No symptoms Cardiovascular: positive: No symptoms Gastrointestinal: positive: Abdominal pain (discomfort when getting out of bed, ow comfortable), Flatus (passed stool this am). negative: Nausea, Vomiting, Difficulty swallowing Genitourinary: positive: No symptoms Musculoskeletal: positive: No symptoms Skin: positive: No symptoms Psychiatric: positive: No symptoms - Other Other Information/Narrative: feeling better, tolerating full liq diet, voiding and moving bowels well. minimal ambulation so far. Objective - Patient Data Reviewed Vital Signs: Yes Vital Signs: Vital Signs x48h Temp Pulse Resp BP Pulse Ox 06/01/18 07:49 36.8 C 66 17 114/61 92 Weight: Weight 05/30/18 05/31/18 06/01/18 23:59 23:59 23:59 Weight (kg) 56.5 kg Intake & Output: Intake and Output Totals x24h 05/30/18 05/31/18 06/01/18 23:59 23:59 23:59 Intake Total 2437.5 4109.719 720 Output Total 500 1850 1600 Balance 1937.5 2259.719 -880 - Lab Results Lab Results: 06/01/18 06:20 06/01/18 06:20 Other Lab Results: Lab Results x24hrs 06/01/18 06/01/18 Range/Units 06:20 06:20 WBC 11.0 H (4.8-10.8) x10^3/uL RBC 3.04 L (4.20-5.40) 10^6/uL Hgb 10.7 L (12.0-16.0) g/dL Hct 32.2 L (37.0-47.0) % MCV 106.0 H (81.0-99.0) fL MCH 35.3 H (27.0-31.0) pg MCHC 33.3 (32.0-36.0) g/dL RDW 14.2 (12.0-15.0) % Plt Count 194 (130-450) 10^3/uL MPV 7.8 L (7.9-10.8) fL Neut # (Auto) 9.1 H (1.5-6.6) 10^3/uL Lymph # (Auto) 0.9 L (1.5-3.5) 10^3/uL [place] # (Auto) 0.9 (0.0-1.0) 10^3/uL Eos # (Auto) 0.1 (0.0-0.7) 10^3/uL Baso # (Auto) 0.1 (0.0-0.1) 10^3/uL Absolute Nucleated RBC 0.01 x10^3/uL Nucleated RBC % 0.0 /100WBC Sodium 131 L (135-145) mmol/L Potassium 3.1 L (3.5-5.0) mmol/L Chloride 103 (101-111) mmol/L Carbon Dioxide 20 L (21-32) mmol/L Anion Gap 8.0 (6-13) BUN 11 (6-20) mg/dL Creatinine 0.8 (0.4-1.0) mg/dL Estimated GFR (MDRD) 69 L (>89) Glucose 106 H (70-100) mg/dL Calcium 7.8 L (8.5-10.3) mg/dL Phosphorus 2.1 L (2.5-4.6) mg/dL Magnesium 1.8 (1.7-2.8) mg/dL Total Bilirubin 0.7 (0.2-1.0) mg/dL AST 22 (10-42) IU/L ALT 22 (10-60) IU/L Alkaline Phosphatase 67 (42-121) IU/L Total Protein 5.7 L (6.7-8.2) g/dL Albumin 2.5 L (3.2-5.5) g/dL Globulin 3.2 (2.1-4.2) g/dL Albumin/Globulin Ratio 0.8 L (1.0-2.2) peritoneal fluid C&S NG x 24 hrs - Current Medications Current Medications: Current Medications Generic Name Dose Route Start Last Admin Trade Name Freq PRN Reason Stop Dose Admin Atorvastatin Calcium 20 mg 05/30/18 21:00 05/31/18 21:37 Lipitor PO 20 mg QPM DONNIE Administration Enoxaparin Sodium 40 mg 05/31/18 09:00 06/01/18 07:54 Lovenox SUBQ 40 mg DAILY DONNIE Administration Famotidine 20 mg 05/30/18 09:00 06/01/18 07:51 Pepcid PO 20 mg DAILY DONNIE Administration Ciprofloxacin 200 mls @ 200 mls/hr 05/30/18 01:00 06/01/18 01:45 Cipro 400 Mg/200 Ml IV Infused Q12H DONNIE Infusion Metronidazole 500 mg in 100 mls @ 100 mls/hr 05/30/18 01:00 06/01/18 09:05 Flagyl 500 Mg/100 Ml IV Infused Q8H DONNIE Infusion Acetaminophen 100 mls @ 400 mls/hr 05/30/18 16:00 06/01/18 10:37 Ofirmev IV Infused Q6H DONNIE Infusion Ketorolac Tromethamine 15 mg 05/30/18 15:05 05/31/18 16:38 Toradol Inj (15mg) IVP 06/04/18 15:04 15 mg Q6HR PRN Administration PAIN Non-Formulary Medication 1 drops 05/30/18 21:00 06/01/18 07:52 Cyclosporine [Restasis] EACHEYE 1 drops BID DONNIE Administration Oxycodone HCl 2.5 mg 05/30/18 15:06 05/31/18 03:59 Roxicodone PO 2.5 mg Q6H PRN Administration Pain 5 to 7 Primidone [Primidone 2 each 05/30/18 21:00 05/31/18 21:37 ] 250 Mg Tab PO 2 each QPM DONNIE Administration Polyethylene Glycol 17 gm 05/30/18 09:00 06/01/18 07:50 Miralax PO 17 gm DAILY DONNIE Administration Propranolol HCl 80 mg 05/30/18 21:00 05/31/18 21:38 Inderal La PO 80 mg QPM DONNIE Administration Sodium Chloride 10 ml 05/30/18 01:00 06/01/18 01:51 Normal Saline Flush 0.9% IVP Not Given 0100,0900,1700 DONNIE Topiramate 200 mg 05/30/18 21:00 05/31/18 21:37 Topamax PO 200 mg QPM DONNIE Administration Valacyclovir HCl 500 mg 05/30/18 21:00 06/01/18 07:51 Valtrex PO 500 mg BID DONNIE Administration - Physical Exam Wound/Incisions: positive: Healing well, No drainage General Appearance: positive: No acute distress, Alert Eyes Bilateral: positive: Conjunctivae nml, No scleral icterus ENT: positive: ENT inspection nml, Pharynx nml, No signs of dehydration Neck: positive: Nml inspection, No JVD Respiratory: positive: Chest non-tender, No respiratory distress, Breath sounds nml Cardiovascular: positive: Regular rate & rhythm, No murmur, No gallop Abdomen: positive: Nml bowel sounds, No distention, Tenderness (expected incisional tenderness) Skin: positive: Color nml, No rash, Warm, Dry Extremities: positive: No pedal edema. negative: Calf tenderness Neurologic/Psychiatric: positive: Oriented x3 ABX Reporting Has patient been on IV antibiotics over the past 48 hours?: Yes Impression/Plan - Problem List Problem List: doing well s/p lap vida for torsed gangrenous gallbladder. Plan: advance diet, increase activity, home tomorrow if continues to improve. continue AB until final culture results are available.
--- NOTE | 2018-06-01 18:07 | PROVIDER PROGRESS NOTE ---
Assessment/Plan - Problem List (1) Enlarged gallbladder Assessment/Plan: POD #2 lap cholecystectomy for GB torsion with necrosis. Recovering nicely. Poss DCh tomorrow. (2) Hyponatremia Assessment/Plan: Pt getting iv fluids. Monitor BMP daily. (3) Hypokalemia Assessment/Plan: Replace and monitor labs. - Current Meds Current Meds: Current Medications Generic Name Dose Route Start Last Admin Trade Name Freq PRN Reason Stop Dose Admin Atorvastatin Calcium 20 mg 05/30/18 21:00 05/31/18 21:37 Lipitor PO 20 mg QPM DONNIE Administration Enoxaparin Sodium 40 mg 05/31/18 09:00 06/01/18 07:54 Lovenox SUBQ 40 mg DAILY DONNIE Administration Famotidine 20 mg 05/30/18 09:00 06/01/18 07:51 Pepcid PO 20 mg DAILY DONNIE Administration Ciprofloxacin 200 mls @ 200 mls/hr 05/30/18 01:00 06/01/18 13:50 Cipro 400 Mg/200 Ml IV Infused Q12H DONNIE Infusion Metronidazole 500 mg in 100 mls @ 100 mls/hr 05/30/18 01:00 06/01/18 09:05 Flagyl 500 Mg/100 Ml IV Infused Q8H DONNIE Infusion Acetaminophen 100 mls @ 400 mls/hr 05/30/18 16:00 06/01/18 17:48 Ofirmev IV Infused Q6H DONNIE Infusion Ketorolac Tromethamine 15 mg 05/30/18 15:05 05/31/18 16:38 Toradol Inj (15mg) IVP 06/04/18 15:04 15 mg Q6HR PRN Administration PAIN Non-Formulary Medication 1 drops 05/30/18 21:00 06/01/18 07:52 Cyclosporine [Restasis] EACHEYE 1 drops BID DONNIE Administration Oxycodone HCl 2.5 mg 05/30/18 15:06 05/31/18 03:59 Roxicodone PO 2.5 mg Q6H PRN Administration Pain 5 to 7 Primidone [Primidone 2 each 05/30/18 21:00 05/31/18 21:37 ] 250 Mg Tab PO 2 each QPM DONNIE Administration Polyethylene Glycol 17 gm 05/30/18 09:00 06/01/18 07:50 Miralax PO 17 gm DAILY DONNIE Administration Propranolol HCl 80 mg 05/30/18 21:00 05/31/18 21:38 Inderal La PO 80 mg QPM DONNIE Administration Sodium Chloride 10 ml 05/30/18 01:00 06/01/18 13:57 Normal Saline Flush 0.9% IVP Not Given 0100,0900,1700 DONNIE Topiramate 200 mg 05/30/18 21:00 05/31/18 21:37 Topamax PO 200 mg QPM DONNIE Administration Valacyclovir HCl 500 mg 05/30/18 21:00 06/01/18 07:51 Valtrex PO 500 mg BID DONNIE Administration - Lab Result Fish Bone Diagrams: 06/01/18 06:20 06/01/18 06:20 Subjective - Subjective Patient Reports: Feeling Better, Resting Comfortably, No Complaints Nursing Reports: No Complaints (Eating solids, had a BM) Objective Vital Signs: Vital Signs - 24 hr 05/31/18 06/01/18 06/01/18 20:07 07:49 15:50 Temperature 36.4 C L 36.8 C 36.7 C Heart Rate [ 81 66 70 Brachial] Respiratory 20 17 18 Rate Blood Pressure 118/59 L 114/61 115/59 L [Left Brachial artery] O2 Saturation 94 92 94 Oxygen O2 Source Room air I&O (Last 24 Hrs): Intake and Output Totals x24h 05/30/18 05/31/18 06/01/18 23:59 23:59 23:59 Intake Total 2437.5 4109.719 1820 Output Total 500 1850 2100 Balance 1937.5 2259.719 -280 General: Alert, Oriented x3 HEENT: Atraumatic, Mucous membr. moist/pink Neck: Supple, No JVD Neuro: Non Focal Cardiovascular: Regular rate, No murmurs Respiratory: No respiratory distress, Breath sounds nml Abdomen: Soft, No tenderness Extremities: No edema - Results Results: Laboratory Results WBC 11.0 x10^3/uL (4.8-10.8) H 06/01/18 06:20 RBC 3.04 10^6/uL (4.20-5.40) L 06/01/18 06:20 Hgb 10.7 g/dL (12.0-16.0) L 06/01/18 06:20 Hct 32.2 % (37.0-47.0) L 06/01/18 06:20 MCV 106.0 fL (81.0-99.0) H 06/01/18 06:20 MCH 35.3 pg (27.0-31.0) H 06/01/18 06:20 MCHC 33.3 g/dL (32.0-36.0) 06/01/18 06:20 RDW 14.2 % (12.0-15.0) 06/01/18 06:20 Plt Count 194 10^3/uL (130-450) 06/01/18 06:20 MPV 7.8 fL (7.9-10.8) L 06/01/18 06:20 Neut # (Auto) 9.1 10^3/uL (1.5-6.6) H 06/01/18 06:20 Lymph # (Auto) 0.9 10^3/uL (1.5-3.5) L 06/01/18 06:20 [place] # (Auto) 0.9 10^3/uL (0.0-1.0) 06/01/18 06:20 Eos # (Auto) 0.1 10^3/uL (0.0-0.7) 06/01/18 06:20 Baso # (Auto) 0.1 10^3/uL (0.0-0.1) 06/01/18 06:20 Absolute Nucleated RBC 0.01 x10^3/uL 06/01/18 06:20 Nucleated RBC % 0.0 /100WBC 06/01/18 06:20 PT 12.1 secs (9.9-12.6) 05/30/18 05:55 INR 1.1 (0.8-1.2) 05/30/18 05:55 Sodium 131 mmol/L (135-145) L 06/01/18 06:20 Potassium 3.1 mmol/L (3.5-5.0) L 06/01/18 06:20 Chloride 103 mmol/L (101-111) 06/01/18 06:20 Carbon Dioxide 20 mmol/L (21-32) L 06/01/18 06:20 Anion Gap 8.0 (6-13) 06/01/18 06:20 BUN 11 mg/dL (6-20) 06/01/18 06:20 Creatinine 0.8 mg/dL (0.4-1.0) 06/01/18 06:20 Estimated GFR (MDRD) 69 (>89) L 06/01/18 06:20 Glucose 106 mg/dL (70-100) H 06/01/18 06:20 Glycated Hemoglobin 5.3 % (4.6-6.2) 05/30/18 05:55 Estim Average Glucose 105 (70-100) H 05/30/18 05:55 Lactic Acid 0.9 mmol/L (0.5-2.2) 05/30/18 01:10 Calcium 7.8 mg/dL (8.5-10.3) L 06/01/18 06:20 Phosphorus 2.1 mg/dL (2.5-4.6) L 06/01/18 06:20 Magnesium 1.8 mg/dL (1.7-2.8) 06/01/18 06:20 Total Bilirubin 0.7 mg/dL (0.2-1.0) 06/01/18 06:20 AST 22 IU/L (10-42) 06/01/18 06:20 ALT 22 IU/L (10-60) 06/01/18 06:20 Alkaline Phosphatase 67 IU/L (42-121) 06/01/18 06:20 Total Protein 5.7 g/dL (6.7-8.2) L 06/01/18 06:20 Albumin 2.5 g/dL (3.2-5.5) L 06/01/18 06:20 Globulin 3.2 g/dL (2.1-4.2) 06/01/18 06:20 Albumin/Globulin Ratio 0.8 (1.0-2.2) L 06/01/18 06:20 Lipase 25 U/L (22-51) 05/29/18 22:27 Urine Color YELLOW 05/30/18 00:10 Urine Clarity CLEAR (CLEAR) 05/30/18 00:10 Urine pH 5.5 PH (5.0-7.5) 05/30/18 00:10 Ur Specific [place] 1.010 (1.002-1.030) 05/30/18 00:10 Urine Protein NEGATIVE mg/dL (NEGATIVE) 05/30/18 00:10 Urine Glucose (UA) NEGATIVE mg/dL (NEGATIVE) 05/30/18 00:10 Urine Ketones 40 mg/dL (NEGATIVE) H 05/30/18 00:10 Urine Occult Blood NEGATIVE (NEGATIVE) 05/30/18 00:10 Urine Nitrite NEGATIVE (NEGATIVE) 05/30/18 00:10 Urine Bilirubin NEGATIVE (NEGATIVE) 05/30/18 00:10 Urine Urobilinogen 0.2 (NORMAL) E.U./dL (NORMAL) 05/30/18 00:10 Ur Leukocyte Esterase NEGATIVE (NEGATIVE) 05/30/18 00:10 Ur Microscopic Review NOT INDICATED 05/30/18 00:10 Urine Culture Comments NOT INDICATED 05/30/18 00:10 ABX Reporting Has patient been on IV antibiotics over the past 48 hours?: Yes
[2018-06-01] MEDS: TOPIRAMATE 100 MG TABLET PO SCH (21:27)
[2018-06-01] MEDS: PRIMIDONE 250 MG PO SCH (21:27)
[2018-06-01] MEDS: ATORVASTATIN 10 MG TABLET PO SCH (21:27)
[2018-06-01] MEDS: PROPRANOLOL ER 80 MG CAPSULE PO SCH (21:28)
[2018-06-01] MEDS ORDERED: ACETAMINOPHEN 325 MG TABLET PO PRN (21:34)
[2018-06-02] MEDS: CIPROFLOXACIN 400 MG/200 ML 200 ML IV SCH (00:30)
[2018-06-02] MEDS: metroNIDAZOLE 500 MG/100 ML 500 MG/100 ML BAG IV SCH ×2 (01:40→10:49)
[2018-06-02] MEDS: SODIUM CHLORIDE FLUSH 0.9% 10 ML SYRINGE IVP SCH ×2 (01:41→10:49)
[2018-06-02 06:42] LABS: BASOPHILS # (AUTO) 0.1 10^3/uL (0.0-0.1); BASOPHILS % (AUTO) 0.7 %; EOSINOPHILS # (AUTO) 0.2 10^3/uL (0.0-0.7); EOSINOPHILS % (AUTO) 2.4 %; HGB - HEMOGLOBIN 11.3 g/dL (12.0-16.0); LYMPHOCYTES # (AUTO) 0.9 10^3/uL (1.5-3.5); MEAN CORPUSCULAR HEMOGLOBIN 35.5 pg (27.0-31.0); MEAN CORPUSCULAR HGB CONC 33.3 g/dL (32.0-36.0); MEAN CORPUSCULAR VOLUME 106.7 fL (81.0-99.0); MEAN PLATELET VOLUME 7.9 fL (7.9-10.8); MONOCYTES # (AUTO) 0.8 10^3/uL (0.0-1.0); MONOCYTES % (AUTO) 9.7 %; NEUTROPHILS # (AUTO) 6.1 10^3/uL (1.5-6.6); NEUTROPHILS % (AUTO) 76.2 %; PLT - PLATELET COUNT 239 10^3/uL (130-450); RED BLOOD COUNT 3.17 10^6/uL (4.20-5.40); RED CELL DISTRIBUTION WIDTH 14.3 % (12.0-15.0)
[2018-06-02 06:53] LABS: ALBUMIN 2.7 g/dL (3.2-5.5); ALBUMIN/GLOBULIN RATIO 0.9 (1.0-2.2); BILIRUBIN,TOTAL 0.7 mg/dL (0.2-1.0); CALCIUM 8.1 mg/dL (8.5-10.3); CREATININE 0.7 mg/dL (0.4-1.0); MAGNESIUM 1.9 mg/dL (1.7-2.8); PHOSPHORUS 2.1 mg/dL (2.5-4.6); TOTAL PROTEIN 5.7 g/dL (6.7-8.2)
--- NOTE | 2018-06-02 08:53 | Discharge Plan ---
Discharge Plan Disposition: 01 Home, Self Care Condition: Stable Diet: Regular Activity Restrictions: Activity as Tolerated Additional Instructions or Follow Up instructions: See the surgeon in follow-up as per his instructions. No Smoking: If you smoke, Please STOP! Call for help. Follow-up with: Anat Ramirez MD [Primary Care Provider] -
[2018-06-02 08:54] VITALS: BP 140/93
--- NOTE | 2018-06-02 09:17 | PROVIDER PROGRESS NOTE ---
Subjective - General Admit Date: 05/30/18 Procedure Date: 05/30/18 Post Op Days: 3 Procedure Performed: lap vida - Review of Systems Wound/Incisions: positive: Healing well, No drainage General: positive: No symptoms Pulmonary: positive: No symptoms Cardiovascular: positive: No symptoms Gastrointestinal: positive: Abdominal pain (discomfort when getting out of bed, ow comfortable), Flatus (passed stool this am). negative: Nausea, Vomiting, Difficulty swallowing Genitourinary: positive: Frequency (voiding frequently, large amounts; no dysuria) Objective - Patient Data Reviewed Vital Signs: Yes Vital Signs: Vital Signs x48h Temp Pulse Resp BP Pulse Ox 06/02/18 08:53 36.5 C 77 18 140/93 H 97 Intake & Output: Intake and Output Totals x24h 05/31/18 06/01/18 06/02/18 23:59 23:59 23:59 Intake Total 4109.719 2220 500 Output Total 1850 2550 1150 Balance 2259.719 330 -650 - Lab Results Lab Results: 06/02/18 06:06 06/02/18 06:06 Other Lab Results: Lab Results x24hrs 06/02/18 06/02/18 Range/Units 06:06 06:06 WBC 8.0 (4.8-10.8) x10^3/uL RBC 3.17 L (4.20-5.40) 10^6/uL Hgb 11.3 L (12.0-16.0) g/dL Hct 33.8 L (37.0-47.0) % MCV 106.7 H (81.0-99.0) fL MCH 35.5 H (27.0-31.0) pg MCHC 33.3 (32.0-36.0) g/dL RDW 14.3 (12.0-15.0) % Plt Count 239 (130-450) 10^3/uL MPV 7.9 (7.9-10.8) fL Neut # (Auto) 6.1 (1.5-6.6) 10^3/uL Lymph # (Auto) 0.9 L (1.5-3.5) 10^3/uL [place] # (Auto) 0.8 (0.0-1.0) 10^3/uL Eos # (Auto) 0.2 (0.0-0.7) 10^3/uL Baso # (Auto) 0.1 (0.0-0.1) 10^3/uL Absolute Nucleated RBC 0.00 x10^3/uL Nucleated RBC % 0.0 /100WBC Sodium 139 (135-145) mmol/L Potassium 3.0 L (3.5-5.0) mmol/L Chloride 112 H (101-111) mmol/L Carbon Dioxide 20 L (21-32) mmol/L Anion Gap 7.0 (6-13) BUN 8 (6-20) mg/dL Creatinine 0.7 (0.4-1.0) mg/dL Estimated GFR (MDRD) 81 L (>89) Glucose 122 H (70-100) mg/dL Calcium 8.1 L (8.5-10.3) mg/dL Phosphorus 2.1 L (2.5-4.6) mg/dL Magnesium 1.9 (1.7-2.8) mg/dL Total Bilirubin 0.7 (0.2-1.0) mg/dL AST 34 (10-42) IU/L ALT 26 (10-60) IU/L Alkaline Phosphatase 73 (42-121) IU/L Total Protein 5.7 L (6.7-8.2) g/dL Albumin 2.7 L (3.2-5.5) g/dL Globulin 3.0 (2.1-4.2) g/dL Albumin/Globulin Ratio 0.9 L (1.0-2.2) - Current Medications Current Medications: Current Medications Generic Name Dose Route Start Last Admin Trade Name Freq PRN Reason Stop Dose Admin Atorvastatin Calcium 20 mg 05/30/18 21:00 06/01/18 21:27 Lipitor PO 20 mg QPM DONNIE Administration Enoxaparin Sodium 40 mg 05/31/18 09:00 06/01/18 07:54 Lovenox SUBQ 40 mg DAILY DONNIE Administration Famotidine 20 mg 05/30/18 09:00 06/01/18 07:51 Pepcid PO 20 mg DAILY DONNIE Administration Ciprofloxacin 200 mls @ 200 mls/hr 05/30/18 01:00 06/02/18 01:41 Cipro 400 Mg/200 Ml IV Infused Q12H DONNIE Infusion Metronidazole 500 mg in 100 mls @ 100 mls/hr 05/30/18 01:00 06/02/18 02:45 Flagyl 500 Mg/100 Ml IV Infused Q8H DONNIE Infusion Ketorolac Tromethamine 15 mg 05/30/18 15:05 05/31/18 16:38 Toradol Inj (15mg) IVP 06/04/18 15:04 15 mg Q6HR PRN Administration PAIN Non-Formulary Medication 1 drops 05/30/18 21:00 06/01/18 21:28 Cyclosporine [Restasis] EACHEYE 1 drops BID DONNIE Administration Oxycodone HCl 2.5 mg 05/30/18 15:06 05/31/18 03:59 Roxicodone PO 2.5 mg Q6H PRN Administration Pain 5 to 7 Primidone [Primidone 2 each 05/30/18 21:00 06/01/18 21:27 ] 250 Mg Tab PO 2 each QPM DONNIE Administration Polyethylene Glycol 17 gm 05/30/18 09:00 06/01/18 07:50 Miralax PO 17 gm DAILY DONNIE Administration Propranolol HCl 80 mg 05/30/18 21:00 06/01/18 21:28 Inderal La PO 80 mg QPM DONNIE Administration Sodium Chloride 10 ml 05/30/18 01:00 06/02/18 01:41 Normal Saline Flush 0.9% IVP 10 ml 0100,0900,1700 DONNIE Administration Topiramate 200 mg 05/30/18 21:00 06/01/18 21:27 Topamax PO 200 mg QPM DONNIE Administration Valacyclovir HCl 500 mg 05/30/18 21:00 06/01/18 21:27 Valtrex PO 500 mg BID DONNIE Administration - Physical Exam Wound/Incisions: positive: Healing well, No drainage General Appearance: positive: No acute distress, Alert Eyes Bilateral: positive: Conjunctivae nml, No scleral icterus ENT: positive: ENT inspection nml, Pharynx nml, No signs of dehydration Neck: positive: Nml inspection, No JVD Respiratory: positive: Chest non-tender, No respiratory distress, Rales (faint basilar rales which mostly clear with cough) Cardiovascular: positive: Regular rate & rhythm, No murmur, No gallop Abdomen: positive: Non-tender, Nml bowel sounds, No distention Skin: positive: Color nml, No rash, Warm, Dry Extremities: positive: No pedal edema. negative: Calf tenderness Neurologic/Psychiatric: positive: Oriented x3 ABX Reporting Has patient been on IV antibiotics over the past 48 hours?: Yes Impression/Plan - Problem List Problem List: Doing well PO Day 3 s/p lap vida for gallbladder torsion with gangrene/ infarction. Peritoneal fluid C&S: NG so far; gallbladder C&S: Strep salivarius ( non pathogenic in most cases). Rec: OK for d/c home today; no more antibiotics indicated; RTO 1 week; usual precautions.
[2018-06-02] MEDS: ENOXAPARIN 40 MG/0.4 ML SYRINGE SUBQ SCH (10:48)
[2018-06-02] MEDS: NON FORMULARY MED (Cyclosporine [Restasis] 1 DROPS) EACHEYE SCH (10:48)
[2018-06-02] MEDS: valACYclovir 500 MG TABLET PO SCH (10:49)
[2018-06-02] MEDS: POLYETHYLENE GLYCOL 3350 17 GM PACKET PO SCH (10:49)
[2018-06-02] MEDS: FAMOTIDINE 20 MG TABLET PO SCH (10:49)
--- NOTE | 2018-06-10 00:59 | DISCHARGE SUMMARY ---
Physician: Soco Serna MD DATE OF ADMISSION: 05/30/2018 DATE OF DISCHARGE: 06/02/2018 HISTORY OF PRESENT ILLNESS: This is a 77-year-old white female with a remote history of breast cancer with lumpectomy and radiation, hyperlipidemia on Lipitor, essential tremor on propranolol, cataracts, and osteoarthritis and knee replacement history. The patient presented with worsening abdominal pain over the previous 2 days, anorexic on day 2, and pain not relieved with Tylenol; therefore, she presented to the emergency room. There was no nausea, vomiting, diarrhea, or fever. She underwent evaluation in the emergency room, showing an elevated white blood count if 13.2, mild hyponatremia, CT of the abdomen and pelvis revealed a distended abnormal cystic structure in the right upper quadrant, presumed to be her gallbladder, with wall thickening and adjacent fluid. This was felt to be acute cholecystitis or gallbladder torsion. There was a segment in the colon and sigmoid colon with mild stranding suggesting acute diverticulitis, and she had pelvic ascites. The patient was admitted for management of her abdominal pain, presumed to be from the gallbladder. HOSPITAL COURSE AND DISCHARGE DIAGNOSES 1. 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 The patient had a general surgery consult and she was taken to the operating room. She indeed was found to have a very enlarged gallbladder that was necrotic due to torsion of the gallbladder; no stones were found. She underwent a laparoscopic cholecystectomy. She had a rapid recovery and was able to eat solid food by the second postoperative day. She was discharged in stable condition. The surgeon did not recommend a longer course of antibiotics p.o. at discharge. 2. Hyponatremia. The patient's admitting sodium was 134 and dropped as low as 131. This was felt to be from anorexia and dehydration. She had saline IV fluid replacement and sodium at discharge was 139. 3. Hypokalemia. The patient had low potassium on the final 2 days of hospitalization, 3.1 and 3.0. She required potassium replacement. 4. Essential tremor. The patient was continued on her propranolol. 5. History of breast cancer. No active findings. LABORATORY AND IMAGING: Reviewed and summarized above. ALLERGIES: NONE. MEDICATIONS AT THE TIME OF DISCHARGE Resumption of all of her prehospital medications includin. Aspirin 325 mg daily. 2. Refresh Tears p.r.n. 3. Restasis eyedrops b.i.d. 4. Multivitamin daily. 5. Glucosamine with chondroitin daily. 6. Vitamin D3 daily. 7. Shari 180 mg daily. 8. Topiramate 200 mg every evening. 9. Propranolol ER 80 mg every evening. 10. Lipitor 20 mg every evening. 11. Valtrex 500 mg b.i.d. 12. Primidone 500 mg every evening. PHYSICAL EXAMINATION ON THE DAY BEFORE DISCHARGE VITAL SIGNS: Blood pressure 115/60, heart rate 70 in sinus rhythm, afebrile, room air saturation 94%. HEENT: Unremarkable. NECK: Without JVD or carotid bruits. CHEST: Clear. HEART: Sounds normal. No murmur or gallop. ABDOMEN: Soft with positive bowel sounds. No tenderness. EXTREMITIES: Without edema. NEUROLOGIC: Intact. FOLLOWUP: With her PCP in the next 1-2 weeks, and with the surgeon in the next 7-10 days. CODE STATUS: DNR Time required to complete this entire discharge, chart review, dictation: 30 minutes. oo: Erika Ramirez TD: 06/09/2018 20:50 MTDD
== END 2018-06-02 10:44 | disposition home or self-care (01) | DRG 418 ==
LOC: ED 21:20 → MS2 05-30 00:35
PROVIDERS: ADMIT Internal Medicine; ATTEND Internal Medicine
PROC: 0FT44ZZ Resection of Gallbladder, Percutaneous Endoscopic Approach (ICD-10-PCS; principal; 2018-05-30 12:15)
DX: K57.92 Diverticulitis of intestine, part unspecified, without perforation or abscess without bleeding (principal); K81.9 Cholecystitis, unspecified; K81.0 Acute cholecystitis; E87.1 Hypo-osmolality and hyponatremia; K57.32 Diverticulitis of large intestine without perforation or abscess without bleeding; R18.8 Other ascites; K82.8 Other specified diseases of gallbladder; E78.5 Hyperlipidemia, unspecified; G25.0 Essential tremor; M19.90 Unspecified osteoarthritis, unspecified site; E87.6 Hypokalemia; R73.9 Hyperglycemia, unspecified; J30.9 Allergic rhinitis, unspecified; H04.129 Dry eye syndrome of unspecified lacrimal gland; Z96.659 Presence of unspecified artificial knee joint; Z66 Do not resuscitate; Z79.899 Other long term (current) drug therapy; Z85.3 Personal history of malignant neoplasm of breast; Z92.3 Personal history of irradiation; Z92.21 Personal history of antineoplastic chemotherapy
CPT/HCPCS: 36415; 74177; 80053; 81001; 81003; 83036; 83605; 83690; 83735; 84100; 85025; 85610; 87070; 87077; 87086; 87205; 88304; 93005; 96361; 96374; 96376; 99283; 99284

== ENCOUNTER 2018-06-23 08:56 | Outpatient (CLI) | payer MEDICARE, OTHER ==
--- NOTE | 2018-06-23 11:17 | XRAY Report ---
Procedure Date: 06/23/2018 Accession Number: [id number] / [id number] Procedure: FL - UGI KUB W/Air CPT Code: FULL RESULT: EXAM: UGI KUB W/Air DATE: 06/23/2018 10:13 AM CLINICAL HISTORY: PARAESOPHAGEAL HIATAL HERNIA COMPARISON: CT abdomen and pelvis 05/29/2018. TECHNIQUE: Abdominal radiograph was performed. Following this, double contrast upper GI series fluoroscopic examination was performed including provocative maneuvers for acid reflux. Fluoroscopic exposure time: 1 minute 44 seconds. FINDINGS: Abdomen: A nonobstructive bowel gas pattern is seen. Surgical clips over the right upper quadrant likely represent prior cholecystectomy. A 2.3 cm round calcification is seen in the left upper quadrant. The small sliding hiatal hernia is redemonstrated. Spontaneous reflux to the midesophagus is noted. There is a normal stripping wave, no mass or stricture of the esophagus is identified. IMPRESSION: Small sliding hiatal hernia and esophageal reflux. RADIA
== END 2018-06-23 08:57 | disposition home or self-care (01) ==
LOC: DI 08:56
PROVIDERS: ATTEND Internal Medicine Gastroenterology
DX: K44.9 Diaphragmatic hernia without obstruction or gangrene (principal); K21.9 Gastro-esophageal reflux disease without esophagitis
CPT/HCPCS: 74247

== ENCOUNTER 2019-09-23 10:39 | Outpatient (CLI) | payer MEDICARE, OTHER ==
[2019-09-23] MEDS ORDERED: IOVERSOL 320 100 ML VIAL IVP ONE ×2 (10:54→15:03)
[2019-09-23 11:19] LABS: CALCIUM 9.3 mg/dL (8.5-10.3); CREATININE 0.8 mg/dL (0.4-1.0)
--- NOTE | 2019-09-24 10:39 | CT Report ---
Reason: SPLENIC ARTERY ANEURYSM Procedure Date: 09/23/2019 Accession Number: [id number] / [id number] Procedure: CT - ANGIO ABDOMEN W/WO CPT Code: FULL RESULT: EXAM: CT ANGIOGRAM ABDOMEN WITH CONTRAST EXAM DATE: 09/23/2019 11:56 AM. CLINICAL HISTORY: Splenic artery aneurysm. COMPARISONS: ABDOMEN/PELVIS W/ 05/29/2018 11:19 PM. TECHNIQUE: Routine helical CT angiogram imaging was performed through the abdomen in the arterial phase. IV contrast: Optiray 320 100 mL. Enteric contrast: No. Reconstructions: Coronal, sagittal, and 3D MIP reconstructions. In accordance with CT protocol optimization, one or more of the following dose reduction techniques were utilized for this exam: automated exposure control, adjustment of mA and/or KV based on patient size, or use of iterative reconstructive technique. FINDINGS: Vasculature: Again demonstrated is a splenic artery aneurysm which demonstrates patency/flow centrally and thick peripheral calcification. The aneurysm measures 1.5 x 2.0 x 1.8 cm, without change. Mild to moderate aortic and iliac calcifications redemonstrated. No aortic or additional aneurysms. The celiac axis, SMA and renal arteries are patent with no significant stenoses demonstrated. The AMPARO is patent. No dissection. Lung Bases: Mild left basilar atelectasis or scarring. Mild bibasilar bronchiectasis redemonstrated. Coronary artery calcifications redemonstrated. Cardiac enlargement with probable interval mild increase left ventricular dilatation. Small hiatal hernia redemonstrated. Stable right hemidiaphragm elevation. Abdominal Solid Organs: Normal. The liver, spleen, pancreas, adrenal glands, and kidneys are normal in size and demonstrate no masses or abnormal enhancement. Gallbladder/Bile Ducts: Status post interval cholecystectomy. Mild extrahepatic biliary ductal dilatation redemonstrated. Peritoneal Cavity: Colonic diverticulosis without evidence of diverticulitis. No free fluid, free air, or acute inflammatory process. Bones: No definite acute abnormality. Degenerative disease of the spine appears similar. Mild grade 1 retrolisthesis at L1-L2 and grade 1 anterolisthesis at L4-L5 on without significant change. No spondylolysis. 1.1 cm focal lucency within the L4 vertebral body is stable, favoring a benign finding. Other: None. IMPRESSION: 1. 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 2. Cardiac enlargement, mildly increased. 3. Status post interval cholecystectomy. Mild extrahepatic biliary ductal dilatation redemonstrated. 4. Additional stable chronic findings, as above. RADIA
== END 2019-09-23 10:40 | disposition home or self-care (01) ==
LOC: DI 10:39
PROVIDERS: ATTEND Thoracic Surgery (Cardiothoracic Vascular Surgery)
DX: I72.8 Aneurysm of other specified arteries (principal); I51.7 Cardiomegaly; K83.8 Other specified diseases of biliary tract; Z90.49 Acquired absence of other specified parts of digestive tract
CPT/HCPCS: 36415; 74175; 80048; Q9967

== ENCOUNTER 2022-11-03 11:59 | Emergency (ER) | payer MEDICARE, OTHER ==
[2022-11-03 12:16] VITALS: BP 145/79
--- NOTE | 2022-11-03 12:47 | XRAY Report ---
PROCEDURE: Wrist 4 View LT INDICATIONS: Trauma TECHNIQUE: 4 views of the wrist were acquired. COMPARISON: None FINDINGS: Bones: No fractures or dislocations. No suspicious bony lesions. Scaphoid view: Intact scaphoid. Soft tissues: No suspicious soft tissue calcifications. IMPRESSION: No acute finding. Reviewed by: Bradley Magana MD on 11/03/2022 12:46 PM PST Approved by: Bradley Magana MD on 11/03/2022 12:46 PM PST Station ID: [id number]
--- NOTE | 2022-11-03 13:15 | ED Physician Documentation ---
PD HPI UPPER EXT INJURY - Stated complaint Stated Complaint: LT WRIST INJ - Chief complaint Chief Complaint: Trauma Ext - History obtained from History obtained from: Patient - History of Present Illness Location: Right - Additonal information Additional information: This is an 81-year-old female who tripped and fell on an outstretched Left wrist yesterday. She presents now with left wrist pain and swelling. She denies any other injuries in the fall, no head trauma, no pain in her neck, back, hips. She is using a wrist brace that has been helpful but was concerned for fracture. Review of Systems Ten Systems: 10 systems reviewed and negative (except as per HPI) PD PAST MEDICAL HISTORY - Past Medical History Past Medical History: Yes Cardiovascular: High cholesterol Respiratory: None Neuro: Tremors Endocrine/Autoimmune: None GI: None SHACTOR: Breast cancer : Frequency HEENT: Other Psych: None Musculoskeletal: Osteoarthritis Derm: Other - Past Surgical History Ortho: Knee replacement /SHACTOR: section, Hysterectomy, Other HEENT: Cataracts - Present Medications Home Medications: Ambulatory Orders Medication Instructions Recorded Confirmed Aspirin [Hima] 325 mg PO DAILY 05/30/18 05/30/18 Atorvastatin [Lipitor] 20 mg PO QPM 05/30/18 05/30/18 Carboxymethylcellulose Sodium 1 drops EACHEYE Q2H PRN 05/30/18 05/30/18 [Refresh Tears] Cholecalciferol (Vitamin D3) 2,000 unit PO DAILY 05/30/18 05/30/18 [Vitamin D3] Fexofenadine HCl [Shari Allergy] 180 mg PO DAILY 05/30/18 05/30/18 Glucosa Black 2Kcl/Chondroitin Black 1 each PO BID 05/30/18 05/30/18 [Glucosamine-Chondroitin Tablet] Lutein 20 mg PO DAILY 05/30/18 05/30/18 Multivitamin [Multiple Vitamins] 1 each PO DAILY 05/30/18 05/30/18 Primidone 500 mg PO QPM 05/30/18 05/30/18 Propranolol ER [Inderal LA] 80 mg PO QPM 05/30/18 05/30/18 Topiramate 200 mg PO QPM 05/30/18 05/30/18 Valacyclovir HCl [Valtrex] 500 mg PO BID 05/30/18 05/30/18 cycloSPORINE [Restasis] 1 drops EACHEYE BID 05/30/18 05/30/18 - Allergies Allergies/Adverse Reactions: Allergies Allergy/AdvReac Type Severity Reaction Status Date / Time trifluridine [From Viroptic] AdvReac Edema Verified 11/03/22 12:16 - Social History Does the pt smoke?: No Smoking Status: Never smoker Does the pt drink ETOH?: No Does the pt have substance abuse?: No - Immunizations Immunizations are current?: Yes - POLST Patient has POLST: Yes POLST Status: DNR PD ED PE NORMAL - Vitals Vital signs reviewed: Yes - General General: Alert and oriented X 3, No acute distress, Well developed/nourished - HEENT HEENT: Atraumatic, Moist mucous membranes, Pharynx benign - Cardiac Cardiac: RRR, No murmur - Respiratory Respiratory: No respiratory distress, Clear bilaterally - Extremities Extremities: Other (There is mild swelling and bruising of the left wrist the patient has good flexion and extension, normal radial pulses, normal distal sensation moving hands and fingers without difficulty. She has mild generalized tenderness of the wrist.There are no other extremity injuries) - Neuro Neuro: Alert and oriented X 3 Eye Opening: Spontaneous Motor: Obeys Commands Verbal: Oriented GCS Score: 15 Results - Vitals Vitals: Vital Signs - 24 hr 11/03/22 12:13 Temperature 36.2 C L Heart Rate 56 L Respiratory 16 Rate Blood Pressure 145/79 H O2 Saturation 97 Oxygen O2 Source Room air PD MEDICAL DECISION MAKING - ED course Complexity details: reviewed results, d/w patient ED course: This is a 81-year-old female who presented with left wrist pain after fall a few days ago. She has mild swelling and bruising around the wrist but no fracture on x-ray and I suspect this is likely a sprain. She already has a nice Velcro wrist brace that she is using so she was encouraged to continue using this, may take Tylenol or ibuprofen for pain, use cool compress. She still having pain after 1 to 2 weeks, advised to see PCP and consider repeat x-ray. Departure - Departure Disposition: 01 Home, Self Care Clinical Impression: Injury of wrist Qualifiers: Encounter type: initial encounter Laterality: left Qualified Code(s): S69.92XA - Unspecified injury of left wrist, hand and finger(s), initial encounter Condition: Good Instructions: ED Sprain Wrist Comments: You presented after a fall on outstretched left wrist. It we obtain x-ray which shows no signs of fracture or dislocation. Given your pain however I suspect that you have a Sprain of the wrist. Will place a Velcro wrist splint on it but will likely be sore with movement and mildly swollen for the next several days to weeks. You may use a cool compress and take ibuprofen or Tylenol for pain.If no improvement in 2 to 3 weeks, see your primary doctor for repeat x-ray. Discharge Date/Time: 11/03/22 13:29
== END 2022-11-03 13:29 | disposition home or self-care (01) ==
LOC: ED 11:59
DX: S69.92XA Unspecified injury of left wrist, hand and finger(s), initial encounter (principal); W01.0XXA Fall on same level from slipping, tripping and stumbling without subsequent striking against object, initial encounter
CPT/HCPCS: 99281; 99283

== ENCOUNTER 2022-12-12 10:19 | Outpatient (CLI) | payer MEDICARE, OTHER | END 2022-12-12 10:20 | disposition home or self-care (01) | LOC: LAB.S 10:19 | PROVIDERS: ATTEND Student in an Organized Health Care Education/Training Program | DX: E87.6 Hypokalemia (principal); R94.6 Abnormal results of thyroid function studies | CPT/HCPCS: 36415; 84132; 84443 ==